=== PATIENT | male | born 1965 | race Caucasian/White ===

== ENCOUNTER → 2018-11-07 15:36 | Outpatient (CLI) | payer BC, MEDICARE, SELFPAY ==
--- NOTE | 2018-11-07 15:49 | XR_ITS ---
XR knee RT 4V HISTORY: Knee pain ITS.REASON: weight bearing view, right knee pain ORDERING PHYSICIAN: Vipul Chew MD PATIENT AGE: 52 years COMPARISON: None FINDINGS: No fracture or dislocation. No lytic or blastic change. Normal mineralization. No significant arthritic changes evident. No other significant findings IMPRESSION: Negative Knee
--- NOTE | 2018-11-07 15:49 | XR_ITS ---
XR knee LT 4V HISTORY: Left knee pain ITS.REASON: 4 views weightbearing, left knee pain ORDERING PHYSICIAN: Vipul Chew MD PATIENT AGE: 52 years COMPARISON: 01/25/2017 FINDINGS: Weightbearing views are performed. Minimal spurring is present along the lateral aspect of the patella. There is slight decrease in the medial and lateral joint space on weightbearing views. Small calcification is present along the medial femoral condyle and could represent sequela of remote avulsion fracture. IMPRESSION: 1. Minimal osteoarthritic change. 2. Calcification along the medial femoral condyle suggesting a prior MCL injury/Stieda lesion
== END ==
PROVIDERS: PCP Family Medicine; Visit Provider Orthopaedic Surgery
DX: M25.562 Pain in left knee (principal); M25.561 Pain in right knee
CPT/HCPCS: 73564

== ENCOUNTER → 2018-11-13 10:26 | Outpatient (CLI) | payer BC, MEDICARE, SELFPAY ==
--- NOTE | 2018-11-13 10:28 | MR_ITS ---
MR knee LT wo con HISTORY: Medial left knee pain with instability ITS.REASON: left knee pain ORDERING PHYSICIAN: iVpul Chew MD PATIENT AGE: 52 years Comparison: 11/07/2018 TECHNIQUE: Standard multiplanar multiecho sequences are performed without contrast. FINDINGS: The cruciate ligaments are unremarkable. The collateral ligaments, patellar tendon, and quadriceps tendon have an unremarkable appearance. The radiograph demonstrated a calcification along the medial femoral condyle consistent with an old MCL injury. The MCL however has an unremarkable appearance on the MRI images with no evidence of acute avulsion of the MCL. There does appear to be a horizontal tear of the posterior horn of the medial meniscus along its medial and posterior margin. The lateral meniscus has an unremarkable appearance. There slight decrease in the joint spaces look medial lateral compartment. The patellar cartilage is well preserved. There is a small knee joint effusion. IMPRESSION: 1. Nondisplaced horizontal tear involves the medial and posterior margin of the posterior horn of the medial meniscus 2. Small knee joint effusion. 3. Mild osteoarthritic changes
== END ==
PROVIDERS: PCP Family Medicine; Visit Provider Orthopaedic Surgery
DX: M17.12 Unilateral primary osteoarthritis, left knee (principal)
CPT/HCPCS: 73721

== ENCOUNTER → 2018-11-20 11:00 | Outpatient (CLI) | payer BC, MEDICARE, SELFPAY ==
--- NOTE | 2018-11-20 11:20 | XR_ITS ---
XR chest 2V HISTORY: ITS.REASON: HTN ORDERING PHYSICIAN: Vipul Chew MD PATIENT AGE: 52 years FINDINGS: The cardiomediastinal silhouette and pulmonary vascularity are within normal limits. The lungs are clear without infiltrates, suspicious nodules, or pleural effusions. No bony abnormalities. IMPRESSION: Negative chest, no acute finding
[2018-11-20 11:26] LABS: Basophils % 0.4 % (0.1-2.0); Eosinophils # 0.1 K/mm3 (0.0-0.4); Eosinophils % 0.8 % (0.1-12.0); Lymphocytes # 2.7 K/mm3 (0.7-4.5); Lymphocytes % 31.6 % (10-50); Mean Corpuscular HGB Conc 34.2 g/dL (31.8-35.4); Mean Corpuscular Hemoglobin 31.1 pg (27.0-31.2); Mean Platelet Volume 8.6 fl (7.4-10.4); Monocytes # 0.5 K/mm3 (0.1-1.0); Monocytes % 6.4 % (1.7-9.3); Neutrophils # 5.1 K/mm3 (1.8-7.8); Neutrophils % 60.8 % (37.0-80.0); Platelet Count 204 K/mm3 (142-424); Red Blood Count 5.83 M/mm3 (4.60-6.20); Red Cell Distribution Width 13.2 % (11.5-17.5); White Blood Count 8.4 K/mm3 (4.8-10.8)
[2018-11-20 11:27] LABS: Hemoglobin 18.2 g/dL (14.1-18.0)
[2018-11-20 12:07] LABS: Anion Gap 14.2 mEq/L (5-15); Blood Urea Nitrogen 9 mg/dL (7-18); Calcium 9.4 mg/dL (8.5-10.1); Carbon Dioxide 27 mmol/L (21.0-32.0); Chloride 105 mmol/L (98-107); Estimated Glomerular Filt Rate 89 ml/min (>60); GFR (African American) 107 ML/MIN (>60); Glucose 135 mg/dL (74-106); Potassium 4.2 mmoL/L (3.5-5.1); Sodium 142 mmol/L (136-145)
== END ==
PROVIDERS: Visit Provider Orthopaedic Surgery
DX: Z01.818 Encounter for other preprocedural examination (principal); S83.242D Other tear of medial meniscus, current injury, left knee, subsequent encounter
CPT/HCPCS: 36415; 71046; 80048; 85025; 93005

== ENCOUNTER → 2019-04-04 08:05 | Outpatient (CLI) | payer BC, MEDICARE, SELFPAY ==
[2019-04-04 10:42] LABS: Hemoglobin A1C 5.4 % (0.0-7.0)
[2019-04-04 10:46] LABS: T4 (Thyroxine) 7.2 ug/dl (4.7-13.3); Thyroid Stimulating Hormone 1.04 uIU/ml (0.358-3.740)
[2019-04-06 22:50] LABS: Vitamin D 25 Hydroxy 19.2 ng/mL (30.0-100.0)
[2019-04-06 22:51] LABS: Vitamin B12 353 pg/mL (232-1245)
[2019-04-07 16:41] LABS: Vitamin B6 9.4 ug/L (5.3-46.7)
== END ==
PROVIDERS: Visit Provider Anesthesiology Pain Medicine
DX: G62.9 Polyneuropathy, unspecified (principal); Z79.899 Other long term (current) drug therapy; M54.5 Low back pain; E55.9 Vitamin D deficiency, unspecified
CPT/HCPCS: 36415; 82607; 82652; 83036; 84207; 84436; 84443; 85025

== ENCOUNTER → 2019-04-28 13:43 | Outpatient (CLI) | payer BC, MEDICARE, SELFPAY ==
[2019-04-28 15:41] LABS: Amphetamine/Metha Screen,Urine Negative ng/mL (<1000); Barbiturates Screen,Urine Negative ng/mL (<200); Benzodiazepines Screen,Urine Negative ng/mL (<200); Cannabinoid Screen,Urine Negative ng/mL (<50); Cocaine Screen,Urine Negative ng/mL (<300); Methadone Screen,Urine Negative ng/mL (<300); Opiate Screen,Urine Positive ng/mL (<300); Phencyclidine Screen,Urine Negative ng/mL (<25)
== END ==
PROVIDERS: Visit Provider Nurse Practitioner Family
DX: Z79.899 Other long term (current) drug therapy (principal)
CPT/HCPCS: 80305

== ENCOUNTER 2019-05-06 09:00 | Outpatient (RCR) | payer BC, MEDICARE, SELFPAY | END 2019-05-06 09:05 | disposition home or self-care (01) | LOC: PT 09:00 | PROVIDERS: Visit Provider Anesthesiology Pain Medicine | DX: M54.5 Low back pain (principal) | CPT/HCPCS: 97010; 97012; 97014; 97033; 97035; 97110; 97140; 97163; G0283 ==

== ENCOUNTER → 2019-06-11 15:24 | Outpatient (CLI) | payer BC, MEDICARE, SELFPAY ==
--- NOTE | 2019-06-11 15:26 | MR_ITS ---
PROCEDURE: MR LUMBAR SPINE WO CON CLINICAL INDICATION: Low back pain, BLE radiculopathy Bilateral lower extremity radiculopathy. Back pain 6 lifting heavy object. Bilateral leg pain COMPARISON: [facility] OF THEOLOGY/O MRI-L-SPINE W/O from 07/21/2014 KNEELTWO MR knee LT wo con from 11/13/[address] lumbar spine wo con from 03/30/2019 TECHNIQUE: Standard multiplanar multiecho sequences are performed without contrast. 3-D MIP and myelographic images are also rendered and reviewed FINDINGS: There is normal alignment. The spinal cord ends at the L1-L2 level. There is some mild facet and ligamentum hypertrophy noted at L2-L3 L3-L4 and L4-L5 with unremarkable disc spaces. L5-S1: There is mild degenerative disc disease with mild bulging disc with type 2 endplate changes. No disc herniation or canal stenosis. IMPRESSION: 1. Degenerative disc disease at L5-S1 with mild bulging disc. 2. Mild multilevel facet and ligamentum hypertrophy. No canal stenosis disc herniation or foraminal stenosis apparent. No acute fracture Dictated by: Spencer Sanchez MD 06/13/2019 06:43 Electronically signed by Spencer Sanchez MD in [facility] 06/13/2019 06:43
== END ==
PROVIDERS: PCP Physician Assistant; Visit Provider Physician Assistant
DX: M54.16 Radiculopathy, lumbar region (principal); M54.5 Low back pain
CPT/HCPCS: 72148; 76376

== ENCOUNTER → 2019-06-27 14:26 | Outpatient (CLI) | payer BC, MEDICARE, SELFPAY ==
[2019-06-27 16:14] LABS: Amphetamine/Metha Screen,Urine Negative ng/mL (<1000); Barbiturates Screen,Urine Negative ng/mL (<200); Benzodiazepines Screen,Urine Negative ng/mL (<200); Cannabinoid Screen,Urine Negative ng/mL (<50); Cocaine Screen,Urine Negative ng/mL (<300); Methadone Screen,Urine Negative ng/mL (<300); Opiate Screen,Urine Positive ng/mL (<300); Phencyclidine Screen,Urine Negative ng/mL (<25)
== END ==
PROVIDERS: Visit Provider Nurse Practitioner Family
DX: M54.9 Dorsalgia, unspecified (principal); Z79.899 Other long term (current) drug therapy
CPT/HCPCS: 80305

== ENCOUNTER → 2019-07-07 12:35 | Outpatient (POV) | payer BC, MEDICARE, SELFPAY ==
[2019-07-07 12:54] VITALS: BP 189/89; PULSE 73; RESP 18; O2SAT 99; BMI 36.3
--- NOTE | 2019-07-07 13:17 | HMH.PMCON ---
Assessment and Plan (1) Bulging lumbar disc Current visit: No Status: Chronic Category: Medical Code(s): M51.26 - Other intervertebral disc displacement, lumbar region (2) DDD (degenerative disc disease), lumbar Current visit: No Status: Chronic Category: Medical Code(s): M51.36 - Other intervertebral disc degeneration, lumbar region - Assessment and plan all Dx Assessment and Plan for all problems:: We will schedule an L5-S1 epidural steroid injection for the patient. He is not on any anticoagulation therapy. Patient has failed conservative therapies. Patient is continuing a home stretching program. I will follow-up with the patient after his injection reassess his symptoms at that time. Patient's been instructed to call the office if he has any issues prior to his next appointment. Dr. Dao has reviewed this note and agrees with this plan of care. This note was dictated using voice recognition software and may contain errors or omissions HPI - Data of Consult Consult date: 07/07/19 Requesting Physician: Vianey Castro APRN Primary Care Provider: ODILIA Barrera - Consult Narrative Reason for consult: Back pain History of present illness: Mr. Dyer is a 53 year old male who presents today for consultation in regards to his low back and leg pain. Patient pain started several months ago when he was lifting a heavy object he suddenly had pain in his low back radiating down into his legs. His MRI is fairly benign up to the L5-S1 level where there is degenerative disc disease and a mild bulging disc. Patient has completed 6 weeks of physical therapy with no success. He is been put on narcotics by his primary care physician. Patient states he is unable to take gabapentin. Patient has tried conservative measures at this point I think injection therapy may benefit him. Patient does have a history of substance abuse. Long-term narcotics would not be beneficial for him. CC: Vianey Castro APRN [facility] History I have reviewed the patient's past medical history: Yes Medical History: Reports:: Anxiety, Hypertension Denies:: Cancer, Diabetes Mellitus Type 1, Diabetes Mellitus Type 2, Internal Pacemaker, MRSA, Seizures *Have you ever received a pneumonia vaccine?: Yes *Have you received a flu vaccine this season?: No Other Medical History: Denies: Blood Transfusion Reaction Laterality Cases: Left: Arthroscopy Knee Other Surgeries: No: Pacemaker Amputation: No Fractures: No - *Social History Smoking Status: Current every day smoker Tobacco Type: smokeless tobacco # Packs/Day (cigarettes): 1 Alcohol Intake: never Substance Use Type: denies use *Occupational Status:: other Housing: house Household Members: spouse *Travel in the last 8 weeks: None - Psychiatric History Pschychiatric History:: Reports:: Anxiety Family Hx:: Cancer, Coronary Artery Disease, Diabetes, Heart Attack, Stroke Review of Systems - Review of Systems ROS General: no recent weight change, no fever, no sleep disturbances Respiratory: no cough, no shortness of air, no recurring pulmonary infections Cardiovascular/Peripheral Vascular: No chest pain, No palpitations, no edema, no shortness of breath. Gastrointestinal: no incontinence, normal bowel movements reported Genitourinary: no incontinence Musculoskeletal: Back pain, leg pain Psychiatric: normal mood/ affect, Neurological: [denies weakness in extremities], [denies balance issues] Meds Home Medications Medication Instructions Recorded Confirmed Type diazepam 5 mg tablet 5 mg PO TID PRN #30 tab 04/08/19 06/27/19 History lisinopril 10 mg tablet 10 mg PO DAILY #90 tab 04/08/19 06/27/19 Rx sildenafil (antihypertensive) 20 40 mg PO DAILY PRN #20 tab 04/08/19 06/27/19 Rx mg tablet meloxicam 15 mg tablet 15 mg PO DAILY #30 tab 06/02/19 06/27/19 Rx hydrocodone 5 mg-acetaminophen 325 1 tab PO BID PRN #60 tab 06/27/19 06/27/19 Rx mg tablet
--- NOTE | 2019-07-07 13:22 | P.CONS_ITS ---
Assessment and Plan (1) Bulging lumbar disc Current visit: No Status: Chronic Category: Medical Code(s): M51.26 - Other intervertebral disc displacement, lumbar region (2) DDD (degenerative disc disease), lumbar Current visit: No Status: Chronic Category: Medical Code(s): M51.36 - Other intervertebral disc degeneration, lumbar region - Assessment and plan all Dx Assessment and Plan for all problems:: We will schedule an L5-S1 epidural steroid injection for the patient. He is not on any anticoagulation therapy. Patient has failed conservative therapies. Patient is continuing a home stretching program. I will follow-up with the patient after his injection reassess his symptoms at that time. Patient's been instructed to call the office if he has any issues prior to his next appointment. Dr. Dao has reviewed this note and agrees with this plan of care. This note was dictated using voice recognition software and may contain errors or omissions HPI - Data of Consult Consult date: 07/07/19 Requesting Physician: Vianey Castro APRN Primary Care Provider: ODILIA Barrera - Consult Narrative Reason for consult: Back pain History of present illness: Mr. Dyer is a 53 year old male who presents today for consultation in regards to his low back and leg pain. Patient pain started several months ago when he was lifting a heavy object he suddenly had pain in his low back radiating down into his legs. His MRI is fairly benign up to the L5-S1 level where there is degenerative disc disease and a mild bulging disc. Patient has completed 6 weeks of physical therapy with no success. He is been put on narcotics by his primary care physician. Patient states he is unable to take gabapentin. Patient has tried conservative measures at this point I think injection therapy may benefit him. Patient does have a history of substance abuse. Long-term narcotics would not be beneficial for him. CC: iVaney Castro APRN [facility] History I have reviewed the patient's past medical history: Yes Medical History: Reports:: Anxiety, Hypertension Denies:: Cancer, Diabetes Mellitus Type 1, Diabetes Mellitus Type 2, Internal Pacemaker, MRSA, Seizures *Have you ever received a pneumonia vaccine?: Yes *Have you received a flu vaccine this season?: No Other Medical History: Denies: Blood Transfusion Reaction Laterality Cases: Left: Arthroscopy Knee Other Surgeries: No: Pacemaker Amputation: No Fractures: No - *Social History Smoking Status: Current every day smoker Tobacco Type: smokeless tobacco # Packs/Day (cigarettes): 1 Alcohol Intake: never Substance Use Type: denies use *Occupational Status:: other Housing: house Household Members: spouse *Travel in the last 8 weeks: None - Psychiatric History Pschychiatric History:: Reports:: Anxiety Family Hx:: Cancer, Coronary Artery Disease, Diabetes, Heart Attack, Stroke Review of Systems - Review of Systems ROS General: no recent weight change, no fever, no sleep disturbances Respiratory: no cough, no shortness of air, no recurring pulmonary infections Cardiovascular/Peripheral Vascular: No chest pain, No palpitations, no edema, no shortness of breath. Gastrointestinal: no incontinence, normal bowel movements reported Genitourinary: no incontinence Musculoskeletal: Back pain, leg pain Psychiatric: normal mood/ affect, Neurological: [denies weakness in extremities], [denies balance issues] Meds Home Medications
== END ==
PROVIDERS: PCP Physician Assistant; Visit Provider Clinical Nurse Specialist Family Health
DX: M51.26 Other intervertebral disc displacement, lumbar region (principal); M51.36 Other intervertebral disc degeneration, lumbar region
CPT/HCPCS: 99202

== ENCOUNTER → 2019-09-01 10:40 | Outpatient (POV) | payer BC, MEDICARE, SELFPAY ==
[2019-09-01 12:39] VITALS: BP 150/91; PULSE 84; RESP 18; O2SAT 99; BMI 34.2
--- NOTE | 2019-09-01 12:58 | HMH.PAINSOAP ---
[facility] Pain Management SOAP Note Subjective:: Patient is a pleasant 53-year-old white male who we are treating for low back pain with lumbar radiculopathy. Patient rates his pain a 6 out of 10 however mostly in his right shoulder. Patient did well having no pain for 4 days after his epidural. His pain has begun to come back. He had over 80% relief of his pain symptoms he would like to repeat this. Patient was seen in the ER for his right shoulder he states that he has not followed up with his primary care after this. He states that he got a morphine injection in the ER which was beneficial for him. ROS General: no recent weight change, no fever, no sleep disturbances Respiratory: no cough, no shortness of air, no recurring pulmonary infections Cardiovascular/Peripheral Vascular: No chest pain, No palpitations, no edema, no shortness of breath. Gastrointestinal: no new onset incontinence, normal bowel movements reported Genitourinary: no new onset incontinence Musculoskeletal: Back pain, leg pain Psychiatric: normal mood/ affect Neurological: [denies new onset weakness in extremities], [denies new onset balance issues] Objective:: Physical Exam General: Alert and oriented x3, no acute distress, pleasant and cooperative, [on room air] Lungs: Resps E/U, Symmetrical chest expansion, Eyes: PERRL Musculoskeletal: Flexion and extension of lumbar spine somewhat guarded secondary to pain, deep tendon reflexes normal, strength in upper and lower extremities [5/5], [abnormal gait noted] Neurological: speech clear, lead sharepoint developer equal, no gross sensory deficits Assessment:: Degenerative disc disease lumbar spine with lumbar radiculopathy Plan:: Patient is not a narcotic candidate according to our clinic criteria. But we will set him up for a repeat L4-L5 epidural given the efficacy of his last one. I will follow-up with him after this reassess his symptoms at that time he is been instructed to call the office if he has any issues prior to his next appointment. He is not on any anticoagulation therapy. Dr. Dao has reviewed this note and agrees with this plan of care. This note was dictated using voice recognition software and may contain errors or omissions [facility] History I have reviewed the patient's past medical history: Yes Medical History: Reports:: Anxiety, Hypertension Denies:: Cancer, Diabetes Mellitus Type 1, Diabetes Mellitus Type 2, Internal Pacemaker, MRSA, Seizures *Have you ever received a pneumonia vaccine?: Yes *Have you received a flu vaccine this season?: Yes Other Medical History: Denies: Blood Transfusion Reaction Laterality Cases: Left: Arthroscopy Knee Other Surgeries: No: Pacemaker Amputation: No Fractures: No - *Social History Smoking Status: Current every day smoker Tobacco Type: smokeless tobacco # Packs/Day (cigarettes): 1 Alcohol Intake: never Substance Use Type: denies use *Occupational Status:: disabled Housing: house Household Members: spouse *Travel in the last 8 weeks: None - Psychiatric History Pschychiatric History:: Reports:: Anxiety Family Hx:: Cancer, Coronary Artery Disease, Diabetes, Heart Attack, Stroke
--- NOTE | 2019-09-01 13:03 | P.CONS_ITS ---
[facility] Pain Management SOAP Note Subjective:: Patient is a pleasant 53-year-old white male who we are treating for low back pain with lumbar radiculopathy. Patient rates his pain a 6 out of 10 however mostly in his right shoulder. Patient did well having no pain for 4 days after his epidural. His pain has begun to come back. He had over 80% relief of his pain symptoms he would like to repeat this. Patient was seen in the ER for his right shoulder he states that he has not followed up with his primary care after this. He states that he got a morphine injection in the ER which was beneficial for him. ROS General: no recent weight change, no fever, no sleep disturbances Respiratory: no cough, no shortness of air, no recurring pulmonary infections Cardiovascular/Peripheral Vascular: No chest pain, No palpitations, no edema, no shortness of breath. Gastrointestinal: no new onset incontinence, normal bowel movements reported Genitourinary: no new onset incontinence Musculoskeletal: Back pain, leg pain Psychiatric: normal mood/ affect Neurological: [denies new onset weakness in extremities], [denies new onset balance issues] Objective:: Physical Exam General: Alert and oriented x3, no acute distress, pleasant and cooperative, [on room air] Lungs: Resps E/U, Symmetrical chest expansion, Eyes: PERRL Musculoskeletal: Flexion and extension of lumbar spine somewhat guarded secondary to pain, deep tendon reflexes normal, strength in upper and lower extremities [5/5], [abnormal gait noted] Neurological: speech clear, staff midwife/apprenticeship director equal, no gross sensory deficits Assessment:: Degenerative disc disease lumbar spine with lumbar radiculopathy Plan:: Patient is not a narcotic candidate according to our clinic criteria. But we will set him up for a repeat L4-L5 epidural given the efficacy of his last one. I will follow-up with him after this reassess his symptoms at that time he is been instructed to call the office if he has any issues prior to his next appointment. He is not on any anticoagulation therapy. Dr. Dao has reviewed this note and agrees with this plan of care. This note was dictated using voice recognition software and may contain errors or omissions [facility] History I have reviewed the patient's past medical history: Yes Medical History: Reports:: Anxiety, Hypertension Denies:: Cancer, Diabetes Mellitus Type 1, Diabetes Mellitus Type 2, Internal Pacemaker, MRSA, Seizures *Have you ever received a pneumonia vaccine?: Yes *Have you received a flu vaccine this season?: Yes Other Medical History: Denies: Blood Transfusion Reaction Laterality Cases: Left: Arthroscopy Knee Other Surgeries: No: Pacemaker Amputation: No Fractures: No - *Social History Smoking Status: Current every day smoker Tobacco Type: smokeless tobacco # Packs/Day (cigarettes): 1 Alcohol Intake: never Substance Use Type: denies use *Occupational Status:: disabled Housing: house Household Members: spouse *Travel in the last 8 weeks: None - Psychiatric History Pschychiatric History:: Reports:: Anxiety Family Hx:: Cancer, Coronary Artery Disease, Diabetes, Heart Attack, Stroke
== END ==
PROVIDERS: PCP Physician Assistant; Visit Provider Clinical Nurse Specialist Family Health
DX: M51.16 Intervertebral disc disorders with radiculopathy, lumbar region (principal)
CPT/HCPCS: 99212

== ENCOUNTER → 2019-09-02 16:37 | Outpatient (CLI) | payer BC, MEDICARE, SELFPAY ==
[2019-09-02 17:45] LABS: Amphetamine/Metha Screen,Urine Negative ng/mL (<1000); Barbiturates Screen,Urine Negative ng/mL (<200); Benzodiazepines Screen,Urine Negative ng/mL (<200); Cannabinoid Screen,Urine Negative ng/mL (<50); Cocaine Screen,Urine Negative ng/mL (<300); Methadone Screen,Urine Negative ng/mL (<300); Opiate Screen,Urine Positive ng/mL (<300); Phencyclidine Screen,Urine Negative ng/mL (<25)
== END ==
PROVIDERS: Visit Provider Nurse Practitioner Family
DX: M25.511 Pain in right shoulder (principal)
CPT/HCPCS: 80305

== ENCOUNTER → 2021-01-04 12:53 | Outpatient (CLI) | payer BC, MEDICARE, SELFPAY ==
--- NOTE | 2021-01-04 13:06 | XR_ITS ---
PROCEDURE: XR CHEST 2V CLINICAL HISTORY: LUQ pain COMPARISON: CT CHW CT CHEST W/ CONTRAST from 05/30/2013 CR CXR2V XR chest 2V from 11/20/2018 FINDINGS: The cardiomediastinal silhouette and pulmonary vascularity are within normal limits. The lungs are clear without infiltrates, suspicious nodules, or pleural effusions. No acute bony abnormalities. IMPRESSION: No acute findings. Dictated by: Spencer Sanchez MD 01/04/2021 14:32 Spencer Sanchez MD in [facility] 01/04/2021 14:32
[2021-01-04 13:13] LABS: Basophils % 0.5 % (0.1-2.0); Eosinophils # 0.1 K/mm3 (0.0-0.4); Eosinophils % 0.7 % (0.1-12.0); Hematocrit 50.3 % (42.0-52.0); Hemoglobin 16.7 g/dL (14.1-18.0); Lymphocytes # 3.2 K/mm3 (0.7-4.5); Lymphocytes % 34.5 % (10-50); Mean Corpuscular HGB Conc 33.2 g/dL (31.8-35.4); Mean Corpuscular Hemoglobin 30.1 pg (27.0-31.2); Mean Corpuscular Volume 90.8 fl (80-94); Mean Platelet Volume 8.6 fl (7.4-10.4); Monocytes # 0.8 K/mm3 (0.1-1.0); Monocytes % 8.5 % (1.7-9.3); Neutrophils # 5.2 K/mm3 (1.8-7.8); Neutrophils % 55.8 % (37.0-80.0); Platelet Count 205 K/mm3 (142-424); Red Blood Count 5.54 M/mm3 (4.60-6.20); Red Cell Distribution Width 13.6 % (11.5-17.5); White Blood Count 9.3 K/mm3 (4.8-10.8)
[2021-01-04 14:40] LABS: Chloride 106 mmol/L (98-107)
[2021-01-04 14:41] LABS: Potassium 4.4 mmoL/L (3.5-5.1); Sodium 140 mmol/L (136-145)
[2021-01-04 14:43] LABS: Alanine Aminotransferase 48 U/L (12-78); Alkaline Phosphatase 129 U/L (38-126); Anion Gap 15.4 mEq/L (5-15); Aspartate Amino Transferase 48 U/L (17-59); Bilirubin,Total 0.6 mg/dl (0.2-1.3); Blood Urea Nitrogen 16 mg/dl (9-20); Carbon Dioxide 23 mmol/L (22.0-30.0); Estimated Glomerular Filt Rate 100 ml/min (>60); GFR (African American) 121 ML/MIN (>60)
[2021-01-04 14:44] LABS: Calcium 9.5 mg/dl (8.4-10.2); Glucose 83 mg/dl (74-100); HDL Cholesterol 34 mg/dl (40-60)
[2021-01-04 14:45] LABS: Albumin Level 4.4 g/dl (3.5-5.0); Albumin/Globulin Ratio 1.6 (1.1-1.8); Chol/HDL Ratio 6.1 (1-3.5); Cholesterol 208 mg/dl (140-200); Globulin 2.7 g/dL (1.3-3.2); Total Protein,Serum 7.1 g/dl (6.3-8.2); Triglycerides 298 mg/dl (30-150); VLDL Cholesterol 60 mg/dL (0-40)
[2021-01-04 14:55] LABS: Direct LDL Cholesterol 127.57 mg/dL (100-129)
[2021-01-07 06:17] LABS: PSA, Free 0.34 ng/mL
== END ==
PROVIDERS: Visit Provider Physician Assistant
DX: R10.12 Left upper quadrant pain (principal); R11.2 Nausea with vomiting, unspecified; I10 Essential (primary) hypertension; Z79.899 Other long term (current) drug therapy; Z12.5 Encounter for screening for malignant neoplasm of prostate
CPT/HCPCS: 36415; 71046; 80053; 80061; 84153; 84154; 84436; 84443; 85025

== ENCOUNTER → 2021-01-28 08:45 | Outpatient (CLI) | payer BC, MEDICARE, SELFPAY ==
--- NOTE | 2021-01-28 08:45 | US_ITS ---
PROCEDURE: US ABDOMEN COMPLETE CLINICAL INDICATION: luq pain COMPARISON: US RUQ US RUQ-(ABD LTD)1ORGAN/QUAD/FU from 04/03/2014 FINDINGS: PANCREAS: Unremarkable. No obvious mass or abnormal fluid collection. No ductal dilatation LIVER: Diffuse increased echogenicity of the liver with poor through transmission of sound consistent with hepatic steatosis. No focal liver lesion demonstrated. There is appropriate direction of blood flow within non dilated portal vein. RIGHT KIDNEY: Unremarkable. Normal size and echogenicity. No hydronephrosis LEFT KIDNEY: Unremarkable. Normal size and echogenicity. No hydronephrosis GALLBLADDER: No gallstones, gallbladder wall thickening, pericholecystic fluid, or biliary dilatation. AORTA: No evidence of aneurysmal dilatation. SPLEEN: Mild splenomegaly at 14 cm ASCITES: None demonstrated. IMPRESSION: Fatty liver otherwise negative Dictated by: Spencer Sanchez MD 01/28/2021 17:30 Spencer Sanchez MD in [facility] 01/28/2021 17:30
== END ==
PROVIDERS: PCP Emergency Medicine; Visit Provider Physician Assistant
DX: R10.12 Left upper quadrant pain (principal)
CPT/HCPCS: 76700

== ENCOUNTER → 2021-02-18 07:58 | Outpatient (CLI) | payer BC, MEDICARE, SELFPAY ==
--- NOTE | 2021-02-18 07:58 | CT_ITS ---
PROCEDURE: CT ABDOMEN WO CON CLINICAL INDICATION: LUQ pain COMPARISON: CT ABDPELW CT ABD PELVIS W/ CONTRAST from 04/15/2014 TECHNIQUE: Axial images obtained with sagittal and coronal reformats. All CT scans at the facility use one or more dose reduction, viz: automated exposure control, ma/kV adjustment per patient size (including targeted exams where dose is matched to indication, i.e. head), or iterative reconstruction technique. FINDINGS: Lower thorax: The lower lung cole are clear, there is no pleural fluid. ABDOMEN: Liver: No masses or biliary dilatation. Gallbladder: Nondistended. No radio opaque stones. Pancreas: No masses or peripancreatic fluid collections. Spleen: unremarkable Adrenals: unremarkable Kidneys/ureters: unremarkable ABDOMEN : Stomach bowel: The stomach is distended with ingested food particles and fluid but otherwise appears normal. Stomach is high in transverse in position, a normal variation. There is diffuse diverticulosis of the visualized portion of the transverse colon and descending colon. Peritoneum: No abnormal fluid collections. No obvious inflammatory changes. No free air. Lymph nodes: No enlarged lymph nodes apparent in the visualized portion of the abdomen. Vasculature: No evidence of abdominal aortic aneurysm. No retroperitoneal hemorrhage evident. Bones: No acute fracture IMPRESSION: No acute finding, specifically I see no abnormality in the left upper quadrant, basically stable diffuse diverticulosis of the transverse and descending colon which was seen previously. Dictated by: Dr. Rajiv Clifton MD 02/18/2021 08:40 Dr. Rajiv Clifton MD in [facility] 02/18/2021 08:40
== END ==
PROVIDERS: PCP Emergency Medicine; Visit Provider Physician Assistant
DX: R10.12 Left upper quadrant pain (principal); R16.1 Splenomegaly, not elsewhere classified; K76.0 Fatty (change of) liver, not elsewhere classified
CPT/HCPCS: 74150

== ENCOUNTER → 2021-05-06 11:46 | Outpatient (CLI) | payer BC, MEDICARE, SELFPAY ==
[2021-05-06 13:37] LABS: Free T4 (Free Thyroxine) 1.23 ng/dl (0.78-2.19)
[2021-05-06 13:41] LABS: Hemoglobin A1C 5.3 % (4.0-6.0)
[2021-05-06 13:43] LABS: C-Reactive Protein 6.3 mg/L (0-4)
[2021-05-06 14:10] LABS: Thyroid Stimulating Hormone 1.71 uIU/mL (0.465-4.68)
[2021-05-06 14:44] LABS: Vitamin B12 395 pg/mL (239-931)
[2021-05-06 14:47] LABS: Folate 8.26 ng/mL
[2021-05-07 12:55] LABS: RA Latex Turbid. <10.0 IU/mL (0.0-13.9)
[2021-05-08 16:32] LABS: Antinuclear Antibodies, IFA Negative (.)
[2021-05-09 14:39] LABS: Albumin 3.8 g/dL (2.9-4.4); Alpha-1-Globulin 0.3 g/dL (0.0-0.4); Alpha-2-Globulin 0.6 g/dL (0.4-1.0); Gamma Globulin 1.2 g/dL (0.4-1.8)
[2021-05-12 15:57] LABS: Methylmalonic Acid 223 nmol/L (0-378)
== END ==
PROVIDERS: Visit Provider Physical Medicine & Rehabilitation
DX: G60.9 Hereditary and idiopathic neuropathy, unspecified (principal)
CPT/HCPCS: 36415; 82131; 82607; 82746; 83036; 84155; 84165; 84439; 84443; 86038; 86140; 86431

== ENCOUNTER → 2021-09-02 14:37 | Outpatient (CLI) | payer BC, MEDICARE, SELFPAY ==
[2021-09-05 16:11] LABS: Albumin 3.7 g/dL (2.9-4.4); Alpha-1-Globulin 0.2 g/dL (0.0-0.4); Alpha-2-Globulin 0.4 g/dL (0.4-1.0); Gamma Globulin 1.3 g/dL (0.4-1.8); Protein, Total 6.4 g/dL (6.0-8.5)
== END ==
PROVIDERS: Visit Provider Physical Medicine & Rehabilitation
DX: G80.9 Cerebral palsy, unspecified (principal)
CPT/HCPCS: 36415; 84155; 84165

== ENCOUNTER → 2022-01-25 06:31 | Outpatient (CLI) | payer BC, MEDICARE, SELFPAY | PROVIDERS: PCP Physician Assistant; Visit Provider Internal Medicine | DX: R06.00 Dyspnea, unspecified (principal); R07.9 Chest pain, unspecified; I10 Essential (primary) hypertension; R94.31 Abnormal electrocardiogram [ECG] [EKG] | CPT/HCPCS: 93306 ==

== ENCOUNTER → 2022-06-06 16:21 | Outpatient (CLI) | payer BC, MEDICARE, SELFPAY | PROVIDERS: PCP Nurse Practitioner Family; Visit Provider Nurse Practitioner Family | DX: N39.0 Urinary tract infection, site not specified (principal) | CPT/HCPCS: 87086 ==

== ENCOUNTER 2022-08-12 14:36 | Emergency (ER) | payer OTHER, SELFPAY ==
--- NOTE | 2022-08-12 14:44 | EXP.UTC ---
Discharge Plan Disposition Patient Disposition: Home, Self-Care Condition: Good Prescriptions Prescriptions: New amoxicillin-pot clavulanate 875-125 mg Tablet 1 tab PO Q12H Qty: 20 0RF No Action oxycodone 10 mg tablet 15 mg PO QID PRN Label Comments: TAKE ONE TABLET BY MOUTH FOUR TIMES DAILY NEEDED MAY CAUSE DROWSINESS gabapentin 100 mg capsule 100 mg PO QID prednisone 20 mg tablet 20 mg PO BID 5 Days Qty: 10 0RF cyclobenzaprine 10 mg tablet 10 mg PO TID PRN (Reason: muscle spasm) Qty: 60 0RF diclofenac sodium [Arthritis Pain (diclofenac)] 1 % gel 2 g TOPICAL QID Qty: 100 2RF Rx Instructions: apply to single elbow, wrist or hand; for hand includes palm/fingers/back of hand Referrals Follow up/Referrals: Praveen Lemus MD [Primary Care Provider] - See instructions Activity Restrictions/Add. Instructions Additional Instructions/Restrictions: Keep the wounds clean and dry. Follow up with your regular doctor. Take the antibiotics as directed and apply the topical antibiotics as directed. Make sure you stay in contact with the health department regarding the health of the dog. Return in 10 days to have the sutures removed. Watch the puncture wounds for signs of worsening infection, such as worsening redness, drainage, swelling, etc. 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 He states that today he was investigating a dog bite in the community when the dog in question attacked him and bit him on the left hand. His tetanus immunization is not up to date. Related Data Home Medications Medication Instructions Recorded Confirmed oxycodone 10 mg tablet 15 mg PO QID PRN 01/04/21 06/06/22 gabapentin 100 mg capsule 100 mg PO QID 01/02/22 06/06/22 Previous Rx's Medication Instructions Recorded diclofenac sodium 1 % topical gel 2 g topical QID #100 grams 01/23/22 (Arthritis Pain (diclofenac)) cyclobenzaprine 10 mg tablet 10 mg PO TID PRN muscle spasm #60 06/06/22 tabs prednisone 20 mg tablet 20 mg PO BID 5 days #10 tabs 06/06/22 amoxicillin 875 mg-potassium 1 tab PO Q12H #20 tabs 08/12/22 clavulanate 125 mg tablet Allergies Allergy/AdvReac Type Severity Reaction Status Date / Time garlic [GARLIC] Allergy Severe THROAT Verified 08/12/22 15:11 SWELLING famotidine [From PEPCID] Allergy Mild HYPER Verified 08/12/22 15:11 metoclopramide [From REGLAN] Allergy Mild HYPER Verified 08/12/22 15:11 PFSH PFSH Medical History BMI 39.0-39.9,adult Erectile dysfunction Hypertension Lumbar radiculopathy Social History Smoking Status: Never smoker alcohol intake: never substance use type: denies use current occupational status: disabled Travel in the last 8 weeks: Inside the [place] household members: spouse housing: house current occupational exposures/hazards: No caffeine: No ROS Obtained: Yes All systems reviewed & no additional complaints except as documented Constitutional Constitutional: Denies chills and Denies fever(s) Eyes Eyes: Denies eye discharge ENT Ears, Nose, Mouth, and Throat: Denies dizziness, Denies otalgia and Denies sore throat Cardiovascular Cardiovascular: Denies chest pain Respiratory Respiratory: Denies shortness of breath, Denies chest congestion, Denies cough, Denies stridor and Denies wheezing Gastrointestinal Gastrointestingal: Denies nausea or vomiting Musculoskeletal Musculoskeletal: Reports system reviewed and no additional complaint
[2022-08-12 15:09] VITALS: BP 182/112; PULSE 100; RESP 18; TEMP 37.2; O2SAT 95; BMI 34.0
[2022-08-12 16:30] VITALS: BP 182/112; PULSE 100; RESP 18; TEMP 37.2
== END 2022-08-12 16:32 | disposition home or self-care (01) ==
PROVIDERS: Emergency Provider Nurse Practitioner Family; PCP Emergency Medicine
DX: S61.432A Puncture wound without foreign body of left hand, initial encounter (principal); W54.0XXA Bitten by dog, initial encounter; Z23 Encounter for immunization
CPT/HCPCS: 12001; 90471; 90714; 99213; G0463

== ENCOUNTER → 2022-10-18 13:31 | Outpatient (CLI) | payer BC, MEDICARE, SELFPAY ==
--- NOTE | 2022-10-18 13:32 | US_ITS ---
PROCEDURE INFORMATION: Exam: US Left Breast, Complete MG Bilateral Diagnostic Breast Tomosynthesis Exam date and time: 10/18/2022 2:22 PM Age: 56 years old Clinical indication: Left breast pain; Left breast swelling; Patient HX: Pain behind nipple x 3 wks TECHNIQUE: Imaging protocol: Complete ultrasound of all four quadrants of the Left breast and the retroareolar regions, including ultrasound of the axilla when performed. Bilateral Diagnostic tomosynthesis and 2D mammography including computer-aided detection (CAD) when performed. Unilateral or bilateral exam. COMPARISON: MG MM DIG MAMM BI DX W/CAD 10/18/2022 1:33 PM FINDINGS: MAMMOGRAPHY: Breast composition: There are scattered areas of fibroglandular density on the left consistent with mild unilateral left gynecomastia. No breast tissue is noted on the right.. There is no stellate mass, architectural distortion or suspicious microcalcifications in either breast to suggest malignancy. No skin thickening or axillary adenopathy. ULTRASOUND: Sonographic images of the left breast including the retroareolar region, all 4 quadrants and the axilla do not demonstrate any solid or cystic masses. Mild retroareolar gynecomastia is noted. No architectural distortion or acoustical shadowing. No skin thickening or axillary adenopathy. Comparison retroareolar sonographic image of the right breast demonstrates adipose tissue only IMPRESSION: Palpable abnormality in the left breast corresponds to mild unilateral benign gynecomastia. Correlation with current medication use is recommended to assess the potential etiology for the gynecomastia ASSESSMENT: BI-RADS Category 2: Benign
== END ==
PROVIDERS: PCP Physician Assistant; Visit Provider Physician Assistant
DX: N63.20 Unspecified lump in the left breast, unspecified quadrant (principal); N64.4 Mastodynia
CPT/HCPCS: 76641; 77062; 77066; G0279

== ENCOUNTER → 2022-10-25 09:52 | Outpatient (CLI) | payer BC, MEDICAID, SELFPAY ==
[2022-10-25 10:16] LABS: Basophils # 0.1 K/mm3 (0-0.2); Basophils % 0.6 % (0.1-2.0); Eosinophils # 0.1 K/mm3 (0.0-0.4); Eosinophils % 1.1 % (0.1-12.0); Hematocrit 50.4 % (42.0-52.0); Hemoglobin 16.7 g/dL (14.1-18.0); Lymphocytes # 3.7 K/mm3 (0.7-4.5); Mean Corpuscular HGB Conc 33.2 g/dL (31.8-35.4); Mean Corpuscular Hemoglobin 30.9 pg (27.0-31.2); Mean Corpuscular Volume 93.2 fl (80-94); Mean Platelet Volume 9.4 fl (7.4-10.4); Monocytes # 0.6 K/mm3 (0.1-1.0); Monocytes % 6.7 % (1.7-9.3); Neutrophils # 4.2 K/mm3 (1.8-7.8); Neutrophils % 48.6 % (37.0-80.0); Platelet Count 215 K/mm3 (142-424); Red Cell Distribution Width 13.5 % (11.5-17.5); White Blood Count 8.7 K/mm3 (4.8-10.8)
[2022-10-25 11:09] LABS: Alanine Aminotransferase 44 U/L (12-78); Albumin/Globulin Ratio 1.4 (1.1-1.8); Alkaline Phosphatase 132 U/L (38-126); Anion Gap 8.5 mEq/L (5-15); Aspartate Amino Transferase 49 U/L (17-59); Bilirubin,Total 0.6 mg/dl (0.2-1.3); Blood Urea Nitrogen 12 mg/dl (9-20); Calcium 9.3 mg/dl (8.4-10.2); Carbon Dioxide 32 mmol/L (22.0-30.0); Chloride 107 mmol/L (98-107); Chol/HDL Ratio 5.1 (1-3.5); Cholesterol 182 mg/dl (140-200); Estimated Glomerular Filt Rate 117 ml/min (>60); GFR (African American) 141 ML/MIN (>60); Globulin 2.9 g/dL (1.3-3.2); Glucose 123 mg/dl (74-100); HDL Cholesterol 36 mg/dl (40-60); Potassium 5.5 mmoL/L (3.5-5.1); Sodium 142 mmol/L (136-145); Total Protein,Serum 6.9 g/dl (6.3-8.2); Triglycerides 160 mg/dl (30-150); VLDL Cholesterol 32 mg/dL (0-40)
[2022-10-25 11:20] LABS: Direct LDL Cholesterol 117.48 mg/dL (100-129)
[2022-10-25 11:25] LABS: 25-OH Vitamin D, Total 15.2 ng/mL (30-100)
[2022-10-25 11:40] LABS: Prostate Specific Ag Screen 1.1 ng/ml (0.0-4.0); Thyroid Stimulating Hormone 2.61 uIU/mL (0.465-4.68)
[2022-10-25 13:40] LABS: Hemoglobin A1C 5.9 % (4.0-6.0)
[2022-10-26 12:02] LABS: FSH 5.4 mIU/mL (1.5-12.4); LH 6.1 mIU/mL (1.7-8.6); Progesterone 0.6 ng/mL (0.0-0.5); Prolactin 31.8 ng/mL (4.0-15.2); Testosterone,Total 349 ng/dL (264-916)
[2022-10-28 17:18] LABS: Estrogen 63 pg/mL (56-213)
== END ==
PROVIDERS: PCP Physician Assistant; Visit Provider Physician Assistant
DX: N62 Hypertrophy of breast (principal); E55.9 Vitamin D deficiency, unspecified; Z12.5 Encounter for screening for malignant neoplasm of prostate
CPT/HCPCS: 36415; 80053; 80061; 82306; 82672; 83001; 83002; 83036; 84144; 84146; 84403; 84443; 85025; G0103

== ENCOUNTER 2023-03-19 19:30 | Inpatient (IN) | payer BC, MEDICARE, SELFPAY ==
[2023-03-19 19:32] VITALS: BP 158/88; PULSE 115; RESP 26; TEMP 37.1; O2SAT 98; BMI 39.5
[2023-03-19 19:45] VITALS: BMI 39.5
--- NOTE | 2023-03-19 19:48 | CT_ITS ---
PROCEDURE INFORMATION: Exam: CT Abdomen And Pelvis With Contrast Exam date and time: 03/19/2023 8:56 PM Age: 57 years old Clinical indication: Abdominal pain; Localized; Upper; Additional info: Upper abd pain, vomiting blood TECHNIQUE: Imaging protocol: Computed tomography of the abdomen and pelvis with contrast. Radiation optimization: All CT scans at this facility use at least one of these dose optimization techniques: automated exposure control; mA and/or kV adjustment per patient size (includes targeted exams where dose is matched to clinical indication); or iterative reconstruction. Contrast material: ISOVUE; Contrast volume: 75 ml; Contrast route: IV; REPORTING DATA: Count of CT and Cardiac NM exams in prior 12 months: This patient has received 0 known CTs and 0 known cardiac nuclear medicine studies in the 12 months prior to the current study. COMPARISON: CT ABDOMEN WO CON 18/02/2021 07:59 FINDINGS: Liver: Normal. No mass. Gallbladder and bile ducts: Pericholecystic edema. Pancreas: Peripancreatic edema and free fluid in the retroperitoneum. Spleen: Normal. No splenomegaly. Adrenal glands: Normal. No mass. Kidneys and ureters: Normal. No hydronephrosis. Stomach and bowel: Moderate colonic diverticulosis without diverticulitis. Appendix: Unremarkable appendix. Intraperitoneal space: Unremarkable. No free air. No significant fluid collection. Vasculature: Unremarkable. No abdominal aortic aneurysm. Lymph nodes: Unremarkable. No enlarged lymph nodes. Urinary bladder: Unremarkable as visualized. Reproductive: Unremarkable as visualized. Bones/joints: Unremarkable. No acute fracture. Soft tissues: Tiny fat containing umbilical hernia. IMPRESSION: 1. Peripancreatic edema and free fluid in the retroperitoneum. This is most likely due to acute pancreatitis. Patent portal and splenic veins. No peripancreatic fluid collection. 2. Pericholecystic edema. Please exclude acute cholecystitis.
[2023-03-19 20:02] LABS: Chloride 104 mmol/L (98-107); Potassium 4.4 mmoL/L (3.5-5.1); Sodium 143 mmol/L (136-145)
[2023-03-19 20:05] LABS: Alanine Aminotransferase 78 U/L (12-78); Albumin Level 4.2 g/dl (3.5-5.0); Alkaline Phosphatase 167 U/L (38-126); Amylase 1108 U/L (30-110); Anion Gap 14.4 mEq/L (5-15); Aspartate Amino Transferase 120 U/L (17-59); Bilirubin,Direct 0.1 mg/dl (0.0-0.4); Bilirubin,Indirect 0.6 mg/dL (0.0-0.9); Bilirubin,Total 0.7 mg/dl (0.2-1.3); Bilirubin,Unconjugated 0.6 mg/dL (0.0-1.1); Blood Urea Nitrogen 9 mg/dl (9-20); Calcium 9.2 mg/dl (8.4-10.2); Carbon Dioxide 29 mmol/L (22.0-30.0); Creatinine Clearance Estimated 261 mL/min (50-200); Estimated Glomerular Filt Rate 139 ml/min (>60); GFR (African American) 168 ML/MIN (>60); Glucose 141 mg/dl (74-100); Total Protein,Serum 7.4 g/dl (6.3-8.2)
[2023-03-19 20:06] LABS: Lactic Acid 1.6 mmol/L (0.7-2.1)
[2023-03-19 20:11] LABS: C-Reactive Protein 11.4 mg/L (0-4)
--- NOTE | 2023-03-19 20:12 | HMH.EDABDPAI ---
Discharge Plan Disposition Patient Disposition: Admitted Chief Complaint: Abdominal Pain Clinical Impressions Clinical Impression: Acute pancreatitis, Acute cholecystitis Discharge ED Provider: Mariah (ED)Praveen Abdominal Pain HPI General Chief Complaint: Abdominal Pain Stated Complaint: upper abdomin pain Time Seen by Provider: 03/19/23 20:00 Mode of Arrival: Family Vehicle Source of Information: Patient, Spouse and Medical Record Limitations: No Limitations Description of Symptoms (Recalled from ER Triage Doc. by RN): Pt c/o sever upper ABD pain that began at 12 pm today. He also reports bright red bloody vomit. Denies any chronic alcohol use. He denies any trauma or falls recently. Denies any chest pain. Pt is thrashing around in the bed during triage d/t the pain. He report the pain from 12pm did subside quickly and he did not seek treatment at that time. It increased in it's intensity greatly and he presented to the ER for treatment. Denies any prior ABD surgeries. History of Present Illness HPI narrative: acute abd pain which started today with vomiting - pt with no fever MD complaint: abdominal pain Onset (ago): hour(s) Consistency: constant Location: LUQ and epigastric Severity: severe Severity scale (1-10): >10 Quality: sharp Associated symptoms: denies other symptoms Related Data Home Medications Medication Instructions Recorded Confirmed gabapentin 400 mg capsule 400 mg PO 10/03/22 10/03/22 oxycodone 15 mg tablet 15 mg PO 10/03/22 10/03/22 Previous Rx's Medication Instructions Recorded diclofenac sodium 1 % topical gel 2 g topical QID #100 grams 01/23/22 (Arthritis Pain (diclofenac)) cyclobenzaprine 10 mg tablet 10 mg PO TID PRN muscle spasm #60 06/06/22 tabs Allergies Allergy/AdvReac Type Severity Reaction Status Date / Time garlic [GARLIC] Allergy Severe THROAT Verified 10/03/22 09:31 SWELLING famotidine [From PEPCID] Allergy Mild HYPER Verified 10/03/22 09:31 metoclopramide [From REGLAN] Allergy Mild HYPER Verified 10/03/22 09:31 [facility] Disclaimer: The information contained in this section may have been updated after the patient was seen, as this information can be updated by other users. Medical History BMI 39.0-39.9,adult Erectile dysfunction Hypertension Lumbar radiculopathy Social History Smoking Status: Never smoker alcohol intake: never substance use type: denies use current occupational status: disabled Travel in the last 8 weeks: [place] the [place] household members: spouse housing: house current occupational exposures/hazards: No caffeine: No ROS Obtained: Yes All systems reviewed & no additional complaints except as documented Physical Exam General General appearance: alert Head Head exam: normocephalic Eye Eye exam: Present PERRL and EOMI; Absent scleral icterus ENT ENT exam: Present mucous membranes moist Neck Neck exam: Present trachea midline Respiratory Respiratory exam: Absent respiratory distress Cardiovascular Cardiovascular exam: Present regular rate Abdominal Exam Abdominal exam: Present soft and tenderness; Absent guarding or rebound Abdominal tenderness: Present LUQ, epigastrium and severe Extremities Exam Extremities exam: Present full ROM Neurological Exam Neurological exam: Present alert, oriented X3 and CN II-XII intact; Absent motor sensory deficit Skin Skin exam: Absent rash Medical Decision Making Medical Records Medical records reviewed: Yes I reviewed the patient's medical records. [place] Inquiry Pt receiving controlled substance: No Vital Signs: 03/19/23 19:32 Temperature 98.7 F Temperature Source Oral Pulse Rate [Right] 115 H Respiratory Rate 26 H Blood Pressure [Right Arm] 158/88 H Blood Pressure Mean [Right Arm] 111 Blood Pressure Source [Right Arm] Automatic Cuff 02 Sat by Pu
[2023-03-19 20:31] LABS: Erythrocyte Sedimentation Rate 9 mm/hr (0-20)
--- NOTE | 2023-03-19 20:34 | XR_ITS ---
PROCEDURE INFORMATION: Exam: XR Chest Exam date and time: 03/19/2023 8:45 PM Age: 57 years old Clinical indication: Pain; Other: Upper abd TECHNIQUE: Imaging protocol: Radiologic exam of the chest. Views: 2 views. COMPARISON: CR XR CHEST 2V 04/01/2021 13:13 FINDINGS: Lungs: Low lung volumes with associated vascular crowding and bibasilar atelectasis. Pleural spaces: Unremarkable. No pleural effusion. No pneumothorax. Heart/Mediastinum: Borderline cardiomegaly. Bones/joints: Unremarkable. IMPRESSION: No acute findings.
[2023-03-19 20:51] LABS: Procalcitonin 0.054 ng/mL (0.0-2.0)
[2023-03-19 21:19] LABS: Lipase 21737 U/L (23-300)
[2023-03-19 21:40] LABS: Basophils # 0.1 K/mm3 (0-0.2); Basophils % 0.3 % (0.1-2.0); Eosinophils % 0.2 % (0.1-12.0); Hematocrit 53.8 % (42.0-52.0); Hemoglobin 17.7 g/dL (14.1-18.0); Lymphocytes # 2.6 K/mm3 (0.7-4.5); Lymphocytes % 17.3 % (10-50); Mean Corpuscular HGB Conc 32.9 g/dL (31.8-35.4); Mean Corpuscular Hemoglobin 30.6 pg (27.0-31.2); Mean Corpuscular Volume 92.8 fl (80-94); Mean Platelet Volume 9.6 fl (7.4-10.4); Monocytes % 6.9 % (1.7-9.3); Neutrophils # 11.1 K/mm3 (1.8-7.8); Neutrophils % 75.3 % (37.0-80.0); Platelet Count 227 K/mm3 (142-424); Red Cell Distribution Width 13.4 % (11.5-17.5); White Blood Count 14.8 K/mm3 (4.8-10.8)
--- NOTE | 2023-03-19 21:53 | PC.NURSE ---
Paging on-call General Surgery- Dr. Pickering
--- NOTE | 2023-03-19 21:55 | PC.NURSE ---
Dr Lemus s/w Dr. Pickering
--- NOTE | 2023-03-19 21:59 | PC.NURSE ---
Notified house of admission
--- NOTE | 2023-03-19 22:02 | PC.NURSE ---
Dr. Lemus at bedside. Pt agrees to be admitted. Dr. Lemus s/w hospitalist Demian Martinez for admit.
[2023-03-19 22:04] LABS: Coronavirus 19, PCR Not Detected (NotDetected); Influenza A, PCR Not Detected (NotDetected); Influenza B, PCR Not Detected (NotDetected)
--- NOTE | 2023-03-19 22:07 | PC.NURSE ---
Hospitalist at bedside
--- NOTE | 2023-03-19 22:19 | PC.NURSE ---
Registration notified of admission. Pt assigned to room 204 for acute pancreatitis. Acute to the hospitalist.
[2023-03-19 23:17] VITALS: BP 150/85; PULSE 113; RESP 19; TEMP 37; O2SAT 94
--- NOTE | 2023-03-19 23:21 | PC.NURSE ---
pt arrived to floor at this time
[2023-03-19 23:52] VITALS: BP 150/85; PULSE 114; RESP 22; TEMP 37.8; O2SAT 93; BMI 39.7
--- NOTE | 2023-03-20 00:55 | EXP.HP ---
History of Present Illness *Admission Date: 03/19/23 *Reason for visit:: pancreatitis *History of present illness: 57 year old male presented to ED for c/o abd pain with vomiting. Pt is a poor historian upon admission. Unable to answer most questions. States he has hx of pancreatic cancer. Denies diabetes. States pain started at 11 in the morning with vomiting. unrelated to eating. Does not know when last meal was. [place] [address], WBC 14.8, and CT scan result of acute pancreatitis and pericholecystic edema. Dr. Mckeon spoke with Dr. Pickering in the ED for surgical consultation. Dr. Mckeon called hospitalist team and the patient was admitted for further medical management and ultrasound of gallbladder for the A.M. IV antibiotics were ordered as well as IV pain medication. [facility] Disclaimer: The information contained in this section may have been updated after the patient was seen, as this information can be updated by other users. Medical History BMI 39.0-39.9,adult Erectile dysfunction Hypertension Lumbar radiculopathy Social History Smoking Status: Never smoker alcohol intake: never substance use type: denies use current occupational status: disabled Travel in the last 8 weeks: [place] the [place] household members: spouse housing: house current occupational exposures/hazards: No caffeine: No Review of Systems Review of Systems Review of systems:: pertinent systems reviewed and negative unless documented below Constitutional Constitutional: Reports system reviewed and no additional complaints, except as documented Eyes Eyes: Reports system reviewed and no additional complaints, except as documented ENT Ears, Nose, Mouth, and Throat: Reports system reviewed and no additional complaints, except as documented *Cardiovascular Cardiovascular: Reports system reviewed and no additional complaints, except as documented *Respiratory Respiratory: Reports system reviewed and no additional complaints, except as documented *Gastrointestinal Gastrointestinal: Reports abdominal pain, Reports nausea and Reports vomiting *Genitourinary Genitourinary: Reports system reviewed and no additional complaints, except as documented *Musculoskeletal Musculoskeletal: Reports system reviewed and no additional complaints, except as documented Integumentary/Breasts Skin/Breast: Reports system reviewed and no additional complaints, except as documented *Neurologic Neurologic: Reports system reviewed and no additional complaints, except as documented Psychiatric Psychiatric: Reports system reviewed and no additional complaints, except as documented Meds Home Medications and Allergies Home Medications Medication Instructions Recorded Confirmed Type gabapentin 400 mg capsule 400 mg PO TID Pain 10/03/22 03/20/23 History oxycodone 15 mg tablet 15 mg PO QID PRN Pain 10/03/22 03/20/23 History New Prescriptions to Start Prescriptions: Allergies Allergy/AdvReac Type Severity Reaction Status Date / Time garlic [GARLIC] Allergy Severe THROAT Verified 10/03/22 09:31 SWELLING famotidine [From PEPCID] Allergy Mild HYPER Verified 10/03/22 09:31 metoclopramide [From REGLAN] Allergy Mild HYPER Verified 10/03/22 09:31 Exam Data for Last 24 hours Vital signs and Labs for Last 24 Hours: Temp Pulse Resp BP Pulse Ox 100.1 F H 114 H 22 150/85 H 93 L 03/19/23 23:52 03/19/23 23:52 03/19/23 23:52 03/19/23 23:52 03/19/23 23:52 Laboratory Results - last 24 hr 03/19/23 19:45: ESR 9 03/19/23 19:45: C-Reactive Protein 11.4 H, Amylase 1108 H*, Procalcitonin 0.054 03/19/23 19:45: Sodium 143, Potassium 4.4, Chloride 104, Carbon Dioxide 29, Anion Gap 14.4, BUN 9, Creatinine 0.60 L, Estimated Creat Clear 261, Estimated GFR 139, Est GFR ( Amer) 168, Glucose 141 H, Calcium 9.2, Total Bilirubin
[2023-03-20 04:00] VITALS: BP 123/77; PULSE 110; RESP 20; TEMP 37.7; O2SAT 94; BMI 38.7
--- NOTE | 2023-03-20 06:36 | EXP.SURG.CON ---
History of Present Illness *Admission Date: 03/19/23 *Reason for visit:: Acute cholecystitis/gallstone pancreatitis *History of present illness: This is a 57-year-old gentleman seen in consultation from the primary service after presenting the emergency department with increasing abdominal pain. Please see HPI forwarded from admission H&P below. Forwarded from admission H&P: 57 year old male presented to ED for c/o abd pain with vomiting. Pt is a poor historian upon admission. Unable to answer most questions. States he has hx of pancreatic cancer. Denies diabetes. States pain started at 11 in the morning with vomiting. unrelated to eating. Does not know when last meal was. [place] [address], WBC 14.8, and CT scan result of acute pancreatitis and pericholecystic edema. Dr. Mckeon spoke with Dr. Pickering in the ED for surgical consultation. Dr. Mckeon called hospitalist team and the patient was admitted for further medical management and ultrasound of gallbladder for the A.M. IV antibiotics were ordered as well as IV pain medication. [facility] Disclaimer: The information contained in this section may have been updated after the patient was seen, as this information can be updated by other users. Medical History BMI 39.0-39.9,adult Erectile dysfunction Hypertension Lumbar radiculopathy Social History Smoking Status: Never smoker alcohol intake: never substance use type: denies use current occupational status: disabled Travel in the last 8 weeks: Inside the [place] household members: spouse housing: house current occupational exposures/hazards: No caffeine: No Review of Systems *Neurologic Neurologic: Reports system reviewed and no additional complaints, except as documented Meds Home Medications and Allergies Home Medications Medication Instructions Recorded Confirmed Type diclofenac sodium 1 % topical gel 2 g topical QID #100 grams 01/23/22 10/03/22 Rx (Arthritis Pain (diclofenac)) cyclobenzaprine 10 mg tablet 10 mg PO TID PRN muscle spasm #60 06/06/22 10/03/22 Rx tabs gabapentin 400 mg capsule 400 mg PO 10/03/22 10/03/22 History oxycodone 15 mg tablet 15 mg PO 10/03/22 10/03/22 History New Prescriptions to Start Prescriptions: Allergies Allergy/AdvReac Type Severity Reaction Status Date / Time garlic [GARLIC] Allergy Severe THROAT Verified 10/03/22 09:31 SWELLING famotidine [From PEPCID] Allergy Mild HYPER Verified 10/03/22 09:31 metoclopramide [From REGLAN] Allergy Mild HYPER Verified 10/03/22 09:31 Exam (Inpt) Vital signs and Labs for Last 24 Hours: Temp Pulse Resp BP Pulse Ox 100 F H 110 H 20 123/77 94 L 03/20/23 04:00 03/20/23 04:00 03/20/23 04:00 03/20/23 04:00 03/20/23 04:00 Laboratory Results - last 24 hr 03/19/23 19:45: ESR 9 03/19/23 19:45: C-Reactive Protein 11.4 H, Amylase 1108 H*, Procalcitonin 0.054 03/19/23 19:45: Sodium 143, Potassium 4.4, Chloride 104, Carbon Dioxide 29, Anion Gap 14.4, BUN 9, Creatinine 0.60 L, Estimated Creat Clear 261, Estimated GFR 139, Est GFR ( Amer) 168, Glucose 141 H, Calcium 9.2, Total Bilirubin 0.7, Direct Bilirubin 0.1, Conjugated Bilirubin 0.0, Indirect Bilirubin 0.6, Unconjugated Bilirubin 0.6, AST 120 H, ALT 78, Alkaline Phosphatase 167 H, Total Protein 7.4, Albumin 4.2, Lipase 64515 H 03/19/23 19:45: Lactate 1.6 03/19/23 19:45: WBC 14.8 H, RBC 5.80, Hgb 17.7, Hct 53.8 H, MCV 92.8, MCH 30.6, MCHC 32.9, RDW 13.4, Plt Count 227, MPV 9.6, Neut % (Auto) 75.3, Lymph % (Auto) 17.3, [place] % (Auto) 6.9, Eos % (Auto) 0.2, Baso % (Auto) 0.3, Neut # (Auto) 11.1 H, Lymph # (Auto) 2.6, [place] # (Auto) 1.0, Eos # (Auto) 0.0, Baso # (Auto) 0.1 03/19/23 21:58: SARS-CoV-2 (PCR) Not detected, Influenza A Untype (PCR) Not detected, Influenza Type B (PCR) Not detected I & O for Labs for Last 24 Hour
[2023-03-20 06:39] LABS: Basophils % 0.1 % (0.1-2.0); Hematocrit 50.5 % (42.0-52.0); Hemoglobin 16.6 g/dL (14.1-18.0); Lymphocytes # 1.1 K/mm3 (0.7-4.5); Lymphocytes % 4.8 % (10-50); Mean Corpuscular HGB Conc 32.9 g/dL (31.8-35.4); Mean Corpuscular Hemoglobin 30.6 pg (27.0-31.2); Mean Corpuscular Volume 93.1 fl (80-94); Mean Platelet Volume 9.3 fl (7.4-10.4); Monocytes # 1.2 K/mm3 (0.1-1.0); Monocytes % 5.1 % (1.7-9.3); Neutrophils # 20.6 K/mm3 (1.8-7.8); Platelet Count 184 K/mm3 (142-424); Red Blood Count 5.42 M/mm3 (4.60-6.20); Red Cell Distribution Width 13.5 % (11.5-17.5); White Blood Count 22.9 K/mm3 (4.8-10.8)
[2023-03-20 06:42] LABS: MANUAL DIFFERENTIAL MANUAL DIFFERENTIAL (MANUAL DIFF)
[2023-03-20 06:44] LABS: Chloride 102 mmol/L (98-107); Potassium 4.2 mmoL/L (3.5-5.1); Sodium 139 mmol/L (136-145)
[2023-03-20 06:46] LABS: Alanine Aminotransferase 76 U/L (12-78); Aspartate Amino Transferase 79 U/L (17-59); Blood Urea Nitrogen 11 mg/dl (9-20); Creatinine Clearance Estimated 219 mL/min (50-200); Estimated Glomerular Filt Rate 116 ml/min (>60); GFR (African American) 141 ML/MIN (>60)
[2023-03-20 06:47] LABS: Albumin Level 3.7 g/dl (3.5-5.0); Albumin/Globulin Ratio 1.2 (1.1-1.8); Alkaline Phosphatase 144 U/L (38-126); Anion Gap 12.2 mEq/L (5-15); Bilirubin,Total 1.2 mg/dl (0.2-1.3); Calcium 8.6 mg/dl (8.4-10.2); Carbon Dioxide 29 mmol/L (22.0-30.0); Globulin 3.1 g/dL (1.3-3.2); Glucose 217 mg/dl (74-100); Total Protein,Serum 6.8 g/dl (6.3-8.2)
[2023-03-20 07:00] LABS: Lymphocytes % 12 % (10-50); Monocytes % 6 % (2-9); Neutrophils % 82 % (42-76); Platelet Estimate Normal; RBC Morphology Normal; Total Cells Counted 100
--- NOTE | 2023-03-20 07:00 | US_ITS ---
FINAL REPORT CLINICAL HISTORY: rule out cholecystitis FINDINGS: RIGHT UPPER QUADRANT ULTRASOUND Sonographic images of the right upper quadrant were obtained. The pancreas is partially obscured. There is increased hepatic echogenicity consistent with fatty infiltration. There is gallbladder wall thickening measuring 6 mm. A small amount of pericholecystic fluid is identified. The common duct is normal measuring 4 mm. Limited images of the right kidney are normal. IMPRESSION: Fatty liver. Gallbladder wall thickening with a small amount of pericholecystic fluid which is nonspecific. If indicated, hepatobiliary scan may be helpful. Reviewed, Interpreted and Dictated by Yonatan Mccullough III, MD Transcribed by Lesley Claudio Authenticated and [facility]
[2023-03-20 07:33] VITALS: BP 165/82; PULSE 96; RESP 16; TEMP 36.4; O2SAT 94
[2023-03-20 07:44] LABS: Microscopic, Urine URINE MICROSCOPIC (MICROSCOPIC)
[2023-03-20 07:54] LABS: Appearance,Urine CLEAR (Clear); Bilirubin,Urine Negative (Negative); Blood, Urine TRACE-I (Negative); Color,Urine YELLOW (Yellow); Glucose,Urine (UA) TRACE (Negative); Ketones,Urine TRACE (Negative); Leukocyte Esterase,Urine Negative (Negative); Nitrate,Urine Negative (Negative); PH,Urine 5.5 (5.0-8.5); Protein,Urine Negative (Negative); Specific Gravity, Urine 1.025 (1.005-1.030)
[2023-03-20 08:00] VITALS: O2SAT 98
--- NOTE | 2023-03-20 08:13 | HMH.PHAINT1 ---
Pharmacy Intervention Comments: patient's home medications reviewed with patient and external pharmacy. -Raul Aponte, Pharm Student
[2023-03-20 08:25] LABS: WBC,Urine Occasional #/hpf (0-3)
[2023-03-20 08:27] LABS: Bacteria,Urine 1+ /lpf
--- NOTE | 2023-03-20 12:00 | EXP.ACUTE.PN ---
Subjective *Date: 03/20/23 *Time: 22:41 Interval history: Still having significant abdominal pain. Denies any nausea or vomiting. No diarrhea. Stable on room air. Would like to try some ice chips or clear liquids. Pain responds briefly to Dilaudid. Is on long-acting opiates at home. Denies any fever or chills. Medical Exam Vital signs and Labs for Last 24 Hours: Vital Signs Temp Pulse Pulse Resp BP BP Pulse Ox 03/20/23 15:05 98.2 F 70 16 123/72 95 03/20/23 08:00 98 03/20/23 07:33 97.6 F 96 H 16 165/82 H 94 L 03/20/23 04:00 100 F H 110 H 20 123/77 94 L 03/19/23 23:52 100.1 F H 114 H 22 150/85 H 93 L 03/19/23 23:17 98.6 F 113 H 19 150/85 H Intake and Output 03/20/23 03/20/23 03/20/23 07:59 15:59 23:59 Intake Total 100 / 1108 888 / 1108 120 / 1108 Output Total 300 / 300 0 / 300 0 / 300 Balance -200 / 808 888 / 808 120 / 808 Intake: Intake, Oral Amount 0 / 120 0 / 120 120 / 120 Intake, Total IV Amount 100 / 988 888 / 988 Piperacillin/Tazo 3.375 gm In 0 100 / 988 888 / 988 .9 % Sodium Chloride 50 ml @ 100 mls/hr IV Q8H [facility] Rx#: [id number] Output: Output, Urine Amount 300 / 300 0 / 300 0 / 300 Other: Number of Unmeasured Voids 1 1 1 Weight 132.766 kg Patient Weight 03/20/23 23:59 Weight 132.766 kg Laboratory Results - last 24 hr 03/19/23 19:45: ESR 9 03/19/23 19:45: C-Reactive Protein 11.4 H, Amylase 1108 H*, Procalcitonin 0.054 03/19/23 19:45: Sodium 143, Potassium 4.4, Chloride 104, Carbon Dioxide 29, Anion Gap 14.4, BUN 9, Creatinine 0.60 L, Estimated Creat Clear 261, Estimated GFR 139, Est GFR ( Amer) 168, Glucose 141 H, Calcium 9.2, Total Bilirubin 0.7, Direct Bilirubin 0.1, Conjugated Bilirubin 0.0, Indirect Bilirubin 0.6, Unconjugated Bilirubin 0.6, AST 120 H, ALT 78, Alkaline Phosphatase 167 H, Total Protein 7.4, Albumin 4.2, Lipase 31540 H 03/19/23 19:45: Lactate 1.6 03/19/23 19:45: WBC 14.8 H, RBC 5.80, Hgb 17.7, Hct 53.8 H, MCV 92.8, MCH 30.6, MCHC 32.9, RDW 13.4, Plt Count 227, MPV 9.6, Neut % (Auto) 75.3, Lymph % (Auto) 17.3, [place] % (Auto) 6.9, Eos % (Auto) 0.2, Baso % (Auto) 0.3, Neut # (Auto) 11.1 H, Lymph # (Auto) 2.6, [place] # (Auto) 1.0, Eos # (Auto) 0.0, Baso # (Auto) 0.1 03/19/23 21:58: SARS-CoV-2 (PCR) Not detected, Influenza A Untype (PCR) Not detected, Influenza Type B (PCR) Not detected 03/20/23 05:55: WBC 22.9 H* D, RBC 5.42, Hgb 16.6, Hct 50.5, MCV 93.1, MCH 30.6, MCHC 32.9, RDW 13.5, Plt Count 184, MPV 9.3, Neut % (Auto) 90.0 H, Lymph % (Auto) 4.8 L, [place] % (Auto) 5.1, Eos % (Auto) 0.0 L, Baso % (Auto) 0.1, Neut # (Auto) 20.6 H, Lymph # (Auto) 1.1, [place] # (Auto) 1.2 H, Eos # (Auto) 0.0, Baso # (Auto) 0.0, Total Counted 100, Neutrophils % (Manual) 82 H, Lymphocytes % (Manual) 12, Monocytes % (Manual) 6, Platelet Estimate Normal, RBC Morphology Normal 03/20/23 05:55: Sodium 139, Potassium 4.2, Chloride 102, Carbon Dioxide 29, Anion Gap 12.2, BUN 11, Creatinine 0.70, Estimated Creat Clear 219, Estimated GFR 116, Est GFR ( Amer) 141, Glucose 217 H D, Calcium 8.6, Total Bilirubin 1.2, AST 79 H D, ALT 76, Alkaline Phosphatase 144 H, Total Protein 6.8, Albumin 3.7 D, Globulin 3.1, Albumin/Globulin Ratio 1.2 03/20/23 05:55: Lipase 5756 H 03/20/23 07:27: Urine Color Yellow, Urine Appearance Clear, Urine pH 5.5, Ur Specific [place] 1.025, Urine Protein Negative, Urine Glucose (UA) Trace, Urine Ketones Trace, Urine Blood Trace-i, Urine Nitrate Negative, Urine Bilirubin Negative, Urine Urobilinogen 1.0, Ur Leukocyte Esterase Negative, Urine RBC None, Urine WBC Occasional, Ur Squamous Epith Cells None, Urine Bacteria 1+ I & O for Labs for Last 24 Hours: Intake & Output 03/17/23 03/18/23 03/19/23 03/20/23 23:59 23:59 23:59 23:59 Intake Total 2124 1108 / 1108 Output Total 300 / 300 Balance 2124 808 / 808 Weight 136.078 kg 132.766 kg Constitutional: Present mild distress and obese H
[2023-03-20 13:52] LABS: Lipase 5756 U/L (23-300)
[2023-03-20 15:05] VITALS: BP 123/72; PULSE 70; RESP 16; TEMP 36.8; O2SAT 95
[2023-03-20 20:00] VITALS: BP 153/71; PULSE 65; RESP 20; TEMP 36.9; O2SAT 96
[2023-03-21 04:00] VITALS: BP 152/92; PULSE 62; RESP 20; TEMP 36.9; O2SAT 92; BMI 39.1
[2023-03-21 06:33] LABS: Basophils % 0.2 % (0.1-2.0); Eosinophils # 0.1 K/mm3 (0.0-0.4); Eosinophils % 0.6 % (0.1-12.0); Hematocrit 43.6 % (42.0-52.0); Hemoglobin 14.5 g/dL (14.1-18.0); Lymphocytes # 3.6 K/mm3 (0.7-4.5); Lymphocytes % 24.7 % (10-50); Mean Corpuscular HGB Conc 33.3 g/dL (31.8-35.4); Mean Corpuscular Hemoglobin 30.7 pg (27.0-31.2); Mean Corpuscular Volume 92.2 fl (80-94); Mean Platelet Volume 9.2 fl (7.4-10.4); Monocytes # 0.8 K/mm3 (0.1-1.0); Monocytes % 5.6 % (1.7-9.3); Platelet Count 167 K/mm3 (142-424); Red Blood Count 4.73 M/mm3 (4.60-6.20); Red Cell Distribution Width 13.4 % (11.5-17.5); White Blood Count 14.5 K/mm3 (4.8-10.8)
[2023-03-21 06:43] LABS: Potassium 3.4 mmoL/L (3.5-5.1); Sodium 138 mmol/L (136-145)
[2023-03-21 06:44] LABS: Chloride 102 mmol/L (98-107)
[2023-03-21 06:45] LABS: Amylase 274 U/L (30-110)
[2023-03-21 06:46] LABS: Alanine Aminotransferase 48 U/L (12-78); Albumin Level 2.9 g/dl (3.5-5.0); Alkaline Phosphatase 106 U/L (38-126); Anion Gap 8.4 mEq/L (5-15); Aspartate Amino Transferase 49 U/L (17-59); Bilirubin,Total 0.9 mg/dl (0.2-1.3); Blood Urea Nitrogen 14 mg/dl (9-20); Calcium 8.2 mg/dl (8.4-10.2); Carbon Dioxide 31 mmol/L (22.0-30.0); Creatinine Clearance Estimated 221 mL/min (50-200); Estimated Glomerular Filt Rate 116 ml/min (>60); GFR (African American) 141 ML/MIN (>60); Globulin 2.9 g/dL (1.3-3.2); Glucose 115 mg/dl (74-100); Total Protein,Serum 5.8 g/dl (6.3-8.2)
--- NOTE | 2023-03-21 06:53 | EXP.SURG.PN ---
Subjective Patient reports: no new complaints, still having pain and pain is less Exam Data for Last 24 hours Vital signs and Labs for Last 24 Hours: Temp Pulse Resp BP Pulse Ox 98.4 F 62 20 152/92 H 92 L 03/21/23 04:00 03/21/23 04:00 03/21/23 04:00 03/21/23 04:00 03/21/23 04:00 Laboratory Results - last 24 hr 03/20/23 05:55: Total Counted 100, Neutrophils % (Manual) 82 H, Lymphocytes % (Manual) 12, Monocytes % (Manual) 6, Platelet Estimate Normal, RBC Morphology Normal 03/20/23 05:55: Lipase 5756 H 03/20/23 07:27: Urine Color Yellow, Urine Appearance Clear, Urine pH 5.5, Ur Specific [place] 1.025, Urine Protein Negative, Urine Glucose (UA) Trace, Urine Ketones Trace, Urine Blood Trace-i, Urine Nitrate Negative, Urine Bilirubin Negative, Urine Urobilinogen 1.0, Ur Leukocyte Esterase Negative, Urine RBC None, Urine WBC Occasional, Ur Squamous Epith Cells None, Urine Bacteria 1+ 03/21/23 06:06: WBC 14.5 H D, RBC 4.73, Hgb 14.5, Hct 43.6, MCV 92.2, MCH 30.7, MCHC 33.3, RDW 13.4, Plt Count 167, MPV 9.2, Neut % (Auto) 69.0, Lymph % (Auto) 24.7, [place] % (Auto) 5.6, Eos % (Auto) 0.6, Baso % (Auto) 0.2, Neut # (Auto) 10.0 H, Lymph # (Auto) 3.6, [place] # (Auto) 0.8, Eos # (Auto) 0.1, Baso # (Auto) 0.0 03/21/23 06:06: Sodium 138, Potassium 3.4 L, Chloride 102, Carbon Dioxide 31 H, Anion Gap 8.4, BUN 14 D, Creatinine 0.70, Estimated Creat Clear 221, Estimated GFR 116, Est GFR ( Amer) 141, Glucose 115 H, Calcium 8.2 L, Total Bilirubin 0.9, AST 49 D, ALT 48 D, Alkaline Phosphatase 106, Total Protein 5.8 L, Albumin 2.9 L D, Globulin 2.9, Albumin/Globulin Ratio 1.0 L, Amylase 274 H I & O for Last 24 hours: Intake & Output 03/18/23 03/19/23 03/20/23 03/21/23 11:59 11:59 11:59 11:59 Intake Total 2225 / 2225 2362 / 2362 Output Total 300 / 300 0 / 0 Balance 1925 / 1925 2362 / 2362 Weight 292 lb 11.2 oz 295 lb 6 oz Constitutional Constitutional: no acute distress *Routine Respiratory Exam Respiratory: Absent respiratory distress *Routine Cardiovascular Exam Cardiovascular: Absent tachycardia *Routine Abdominal Exam Abdominal: Present soft and tenderness (Less tender in mid/upper abdomen) Progress Note: A&P Assessment and plan (1) Acute pancreatitis: Status: Acute Assessment and plan: Seemingly improving Follow-up a.m. labs (2) Acute cholecystitis: Status: Acute Assessment and plan: Continue IV antibiotics for now Tentatively plan cholecystectomy for March 22 (pending results of a.m. labs) (3) Transaminitis: Status: Acute (4) Class 2 obesity: Status: Chronic
[2023-03-21 07:00] LABS: Lipase 2533 U/L (23-300)
[2023-03-21 08:00] VITALS: BP 138/85; PULSE 71; RESP 16; TEMP 36.5; O2SAT 94
[2023-03-21 08:13] LABS: Lactate Dehydrogenase 156 U/L (313-618)
--- NOTE | 2023-03-21 15:23 | EXP.ACUTE.PN ---
Subjective *Date: 03/21/23 *Time: 11:28 Interval history: Pain doing better this morning. Tolerating p.o. intake. No nausea or vomiting. Stable on room air. Hemodynamically stable. Patient afebrile. Drastic improvement from yesterday. Medical Exam Vital signs and Labs for Last 24 Hours: Vital Signs Temp Pulse Resp BP Pulse Ox 03/21/23 08:00 97.7 F 71 16 138/85 94 L 03/21/23 04:00 98.4 F 62 20 152/92 H 92 L 03/20/23 20:00 98.4 F 65 20 153/71 H 96 Intake and Output 03/20/23 03/21/23 03/21/23 23:59 07:59 15:59 Intake Total 120 / 2462 1354 / 2814 1460 / 2814 Output Total 0 / 300 0 / 0 0 / 0 Balance 120 / 2162 1354 / 2814 1460 / 2814 Intake: Intake, Oral Amount 120 / 120 1460 / 1460 Intake, Total IV Amount 1354 / 1354 Lactated Ringers 1000ML 1,000 1254 / 1254 ml @ 150 mls/hr IV .[id number] [facility] Rx#:[id number] Piperacillin/Tazo 3.375 gm In 0 100 / 100 .9 % Sodium Chloride 50 ml @ 100 mls/hr IV Q8H [facility] Rx#: [id number] Output: Output, Urine Amount 0 / 300 0 / 0 0 / 0 Other: Number of Unmeasured Voids 1 1 5 Weight 133.98 kg Patient Weight 03/21/23 23:59 Weight 133.98 kg Laboratory Results - last 24 hr 03/21/23 06:06: WBC 14.5 H D, RBC 4.73, Hgb 14.5, Hct 43.6, MCV 92.2, MCH 30.7, MCHC 33.3, RDW 13.4, Plt Count 167, MPV 9.2, Neut % (Auto) 69.0, Lymph % (Auto) 24.7, [place] % (Auto) 5.6, Eos % (Auto) 0.6, Baso % (Auto) 0.2, Neut # (Auto) 10.0 H, Lymph # (Auto) 3.6, [place] # (Auto) 0.8, Eos # (Auto) 0.1, Baso # (Auto) 0.0 03/21/23 06:06: Sodium 138, Potassium 3.4 L, Chloride 102, Carbon Dioxide 31 H, Anion Gap 8.4, BUN 14 D, Creatinine 0.70, Estimated Creat Clear 221, Estimated GFR 116, Est GFR ( Amer) 141, Glucose 115 H, Calcium 8.2 L, Total Bilirubin 0.9, AST 49 D, ALT 48 D, Alkaline Phosphatase 106, Total Protein 5.8 L, Albumin 2.9 L D, Globulin 2.9, Albumin/Globulin Ratio 1.0 L, Amylase 274 H, Lipase 2533 H 03/21/23 06:06: Lactate Dehydrogenase 156 L I & O for Labs for Last 24 Hours: Intake & Output 03/18/23 03/19/23 03/20/23 03/21/23 23:59 23:59 23:59 23:59 Intake Total 2125 / 2175 1108 / 2462 2814 / 2814 Output Total 300 / 300 0 / 0 Balance 2125 / 2175 808 / 2162 2814 / 2814 Weight 136.078 kg 132.766 kg 133.98 kg Constitutional: Present mild distress and obese Head: Present atraumatic and normocephalic ENT: Present normal exam Neck: Present normal inspection Respiratory: Present normal respiratory effort; Absent rhonchi, wheezes or crackles Cardiac: Present Reg Rate and Rhythm GI: Present distention, tenderness (Minimal, significant improvement) and normal bowel sounds Rectal (male): Present deferred Extremities: Present normal inspection and full ROM Skin: Present intact; Absent erythema Neuro: Present Grossly Intact, alert, awake, oriented x 3 and moves all extremities Assessment and Plan *Assessment and plan (1) Acute pancreatitis: Status: Acute Category: Medical Code(s): K85.90 - Acute pancreatitis without necrosis or infection, unspecified (2) Acute cholecystitis: Status: Acute Category: Medical Code(s): K81.0 - Acute cholecystitis (3) Transaminitis: Status: Acute Category: Medical Code(s): R74.01 - Elevation of levels of liver transaminase levels (4) Class 2 obesity: Status: Chronic Category: Medical Code(s): E66.9 - Obesity, unspecified Plan 57 year old male presented to ED for c/o abd pain with vomiting. Pt is a poor historian upon admission. Unable to answer most questions. States he has hx of pancreatic cancer. Denies diabetes. States pain started at 11 in the morning with vomiting. unrelated to eating. Does not know when last meal was. [place] [address], WBC 14.8, and CT scan result of acute pancreatitis and pericholecystic edema. Lipase improved today to 5000. Still having significant pain. Ini
[2023-03-21 15:54] VITALS: BMI 38.8
[2023-03-21 16:00] VITALS: BP 157/76; PULSE 61; RESP 20; TEMP 36.9; O2SAT 99
[2023-03-21 20:00] VITALS: BP 132/68; PULSE 68; RESP 16; TEMP 36.6; O2SAT 98
[2023-03-22] VITALS (23 sets, daily range): BP systolic 116–188; BP diastolic 64–98; PULSE 53–87; RESP 16–21; TEMP 36.1–43; O2SAT 92–98; BMI 39.2
--- NOTE | 2023-03-22 00:48 | PC.NURSE ---
Resting in bed, no c/o voiced. NPO after midnight
--- NOTE | 2023-03-22 06:51 | EXP.SURG.PN ---
Subjective Patient reports: no new complaints Exam Data for Last 24 hours Vital signs and Labs for Last 24 Hours: Temp Pulse Resp BP Pulse Ox 98 F 68 16 132/68 98 03/21/23 20:00 03/21/23 20:00 03/21/23 20:00 03/21/23 20:00 03/21/23 20:00 Laboratory Results - last 24 hr 03/21/23 06:06: Sodium 138, Potassium 3.4 L, Chloride 102, Carbon Dioxide 31 H, Anion Gap 8.4, BUN 14 D, Creatinine 0.70, Estimated Creat Clear 221, Estimated GFR 116, Est GFR ( Amer) 141, Glucose 115 H, Calcium 8.2 L, Total Bilirubin 0.9, AST 49 D, ALT 48 D, Alkaline Phosphatase 106, Lactate Dehydrogenase 156 L, Total Protein 5.8 L, Albumin 2.9 L D, Globulin 2.9, Albumin/Globulin Ratio 1.0 L, Amylase 274 H, Lipase 2533 H I & O for Last 24 hours: Intake & Output 03/19/23 03/20/23 03/21/23 03/22/23 11:59 11:59 11:59 11:59 Intake Total 2225 / 2225 3082 / 3082 1281 / 1281 Output Total 300 / 300 0 / 0 0 / 0 Balance 1925 / 1925 3082 / 3082 1281 / 1281 Weight 292 lb 11.2 oz 295 lb 6 oz 293 lb 3.437 oz Constitutional Constitutional: no acute distress *Routine Respiratory Exam Respiratory: Absent respiratory distress *Routine Cardiovascular Exam Cardiovascular: Absent tachycardia *Routine Abdominal Exam Abdominal: Present soft Progress Note: A&P Assessment and plan (1) Acute pancreatitis: Status: Acute Assessment and plan: Follow-up morning labs (2) Acute cholecystitis: Status: Acute Assessment and plan: Cholecystectomy later today (pending labs)
[2023-03-22 07:37] LABS: Chloride 104 mmol/L (98-107); Potassium 3.9 mmoL/L (3.5-5.1); Sodium 139 mmol/L (136-145)
[2023-03-22 07:38] LABS: Basophils % 0.4 % (0.1-2.0); Eosinophils # 0.2 K/mm3 (0.0-0.4); Eosinophils % 2.3 % (0.1-12.0); Hematocrit 44.2 % (42.0-52.0); Hemoglobin 14.3 g/dL (14.1-18.0); Lymphocytes # 2.2 K/mm3 (0.7-4.5); Lymphocytes % 22.9 % (10-50); Mean Corpuscular HGB Conc 32.3 g/dL (31.8-35.4); Mean Corpuscular Hemoglobin 30.2 pg (27.0-31.2); Mean Corpuscular Volume 93.6 fl (80-94); Mean Platelet Volume 9.5 fl (7.4-10.4); Monocytes # 0.7 K/mm3 (0.1-1.0); Monocytes % 7.4 % (1.7-9.3); Neutrophils # 6.5 K/mm3 (1.8-7.8); Platelet Count 175 K/mm3 (142-424); Red Blood Count 4.72 M/mm3 (4.60-6.20); Red Cell Distribution Width 13.4 % (11.5-17.5); White Blood Count 9.7 K/mm3 (4.8-10.8)
[2023-03-22 07:39] LABS: Blood Urea Nitrogen 9 mg/dl (9-20); Creatinine Clearance Estimated 258 mL/min (50-200); Estimated Glomerular Filt Rate 139 ml/min (>60); GFR (African American) 168 ML/MIN (>60)
[2023-03-22 07:40] LABS: Alanine Aminotransferase 41 U/L (12-78); Albumin Level 3.2 g/dl (3.5-5.0); Albumin/Globulin Ratio 1.1 (1.1-1.8); Alkaline Phosphatase 106 U/L (38-126); Anion Gap 8.9 mEq/L (5-15); Aspartate Amino Transferase 39 U/L (17-59); Bilirubin,Total 0.7 mg/dl (0.2-1.3); Calcium 8.7 mg/dl (8.4-10.2); Carbon Dioxide 30 mmol/L (22.0-30.0); Glucose 123 mg/dl (74-100); Lipase 1031 U/L (23-300); Total Protein,Serum 6.2 g/dl (6.3-8.2)
--- NOTE | 2023-03-22 09:38 | P.PN_ITS ---
Subjective *Date: 03/22/23 *Time: 09:38 Medical Exam Vital signs and Labs for Last 24 Hours: Vital Signs Temp Pulse Resp BP Pulse Ox 03/22/23 08:00 97 03/22/23 07:50 98.1 F 57 L 18 137/66 98 03/22/23 04:00 98.1 F 53 L 16 116/64 94 L 03/21/23 20:00 98 F 68 16 132/68 98 03/21/23 16:00 98.4 F 61 20 157/76 H 99 Intake and Output 03/21/23 03/22/23 03/22/23 23:59 07:59 15:59 Intake Total 541 / 3355 Output Total 0 / 0 Balance 541 / 3355 Intake: Intake, Oral Amount 2000 Output: Output, Urine Amount 0 / 0 Other: Number of Unmeasured Voids 1 Weight 134.173 kg Patient Weight 03/22/23 23:59 Weight 134.173 kg Laboratory Results - last 24 hr 03/22/23 07:14: WBC 9.7 D, RBC 4.72, Hgb 14.3, Hct 44.2, MCV 93.6, MCH 30.2, MCHC 32.3, RDW 13.4, Plt Count 175, MPV 9.5, Neut % (Auto) 67.0, Lymph % (Auto) 22.9, [place] % (Auto) 7.4, Eos % (Auto) 2.3, Baso % (Auto) 0.4, Neut # (Auto) 6.5, Lymph # (Auto) 2.2, [place] # (Auto) 0.7, Eos # (Auto) 0.2, Baso # (Auto) 0.0, Sodium 139, Potassium 3.9, Chloride 104, Carbon Dioxide 30, Anion Gap 8.9, BUN 9 D, Creatinine 0.60 L, Estimated Creat Clear 258, Estimated GFR 139, Est GFR ( Amer) 168, Glucose 123 H, Calcium 8.7, Total Bilirubin 0.7, AST 39, ALT 41, Alkaline Phosphatase 106, Total Protein 6.2 L, Albumin 3.2 L D, Globulin 3.0, Albumin/Globulin Ratio 1.1, Lipase 1031 H I & O for Labs for Last 24 Hours: Intake & Output 03/19/23 03/20/23 03/21/23 03/22/23 23:59 23:59 23:59 23:59 Intake Total 2124 / 2174 1108 / 2462 3355 / 3355 Output Total 300 / 300 0 / 0 Balance 2124 808 / 2162 3355 / 3355 Weight 136.078 kg 132.766 kg 133 kg 134.173 kg The patient's infection will respond to the chosen ABx?: Yes Is the patient receiving the right drug, dose, and route?: Yes Could a more targeted ABx be ordered?: No (PT WBC WNL NOW, AFEBRILE, ACUTE PANCREATITIS)
--- NOTE | 2023-03-22 10:12 | PC.NURSE ---
COURTESY TECH NOTE; ROUNDED ON PT 0810, PT DENIED THE NEED FOR ASSISTANCE WITH RESTROOM AND NEED TO REPOSITION. CALL LIGHT WITHIN REACH, NO FURTHER REQUESTS AT THIS TIME ONDINA DUMONT
--- NOTE | 2023-03-22 10:33 | P.PN_ITS ---
[facility] Disclaimer: The information contained in this section may have been updated after the patient was seen, as this information can be updated by other users. Medical History BMI 39.0-39.9,adult Erectile dysfunction Hypertension Lumbar radiculopathy Social History Smoking Status: Never smoker alcohol intake: never substance use type: denies use current occupational status: disabled Travel in the last 8 weeks: Inside the [employer] States household members: spouse housing: house current occupational exposures/hazards: No caffeine: No [facility] Anesthesia Checklist Patient Identification Patient Identification: Arm Band and Verbal (Name & ) Structural Data Admitted From: Home Planned Operative Procedure/s: lap GB Consent for Planned Operative Procedure(s) Verified: Yes Verified Documents: Surgical Consent and History and Physical NPO Status Verified Time NPO: 10:34 Additional verifications Anesthesia Reactions: No Hx Blood Transfusions: No Blood Transfusion Reaction: No Airway Assessment C-Spine Mobility Assessed: Yes TMJ Mobility Assessed: Yes Dentition: Good Dentition Neurological Assessment Level of Consciousness: Awake and Alert Hx Seizures: No Numbness or tingling in extremities: No Anesthesia Plan Anesthesia Type: General
--- NOTE | 2023-03-22 12:55 | EXP.OP.NOTE ---
Date of procedure: 03/22/23 Pre-op Diagnosis:: Acute calculus cholecystitis Gallstone pancreatitis Post-op Diagnosis:: Same Procedure performed:: Laparoscopic cholecystectomy Surgeon:: Gibran Pickering MD OPERATING ROOM SPECIALIST:: Katey Witt Anesthesia: GETA Estimated blood loss (mL): 15 Operative findings:: Wall thickening and fairly significant inflammatory changes and/around infundibulum Cholangiogram not attempted secondary to above findings Dome down approach utilized secondary to significant infundibular thickening/dilation of cystic duct Operative note:: After informed consent was obtained, the patient was taken to the operating room and placed in the supine position. General anesthesia was induced and the abdomen was prepped and draped in a sterile fashion. After infiltration with local anesthetic an infraumbilical incision was made. A Veress needle was placed in position. The abdomen was insufflated. A 5 mm optical trocar was placed in position. Under direct visualization, a 12 mm trocar was placed in the subxiphoid position and 2 additional 5 mm trocars were placed in the right upper quadrant. The gallbladder was elevated up and over the liver margin. Fairly significant tissue thickening noted. The tissue around the cystic artery was carefully dissected. 2 clips were placed proximally and the artery duct was transected with harmonic tamia. Fairly severe tissue thickening and dilation of the cystic duct/infundibulum noted. The decision was made to forego any attempts at cholangiogram. The decision was also made to proceed with a dome down approach . Harmonic tamia were then utilized to dissect the gallbladder away from the liver margin. Endoloops (x2) were used to control the infundibular margin. The gallbladder was transected with harmonic tamia and then was placed in a retrieval bag prior to removal through the subxiphoid trocar site. The right upper quadrant was thoroughly irrigated. No active bleeding or bile leak was noted. Fascia at the subxiphoid trocar site was reapproximated utilizing the NeoClose device. The remaining trocars were removed. All wounds were irrigated and skin was closed with 4-0 Monocryl in a subcuticular fashion. Steri-Strips were applied. The patient's anesthetic agents were reversed and extubation was completed prior to transfer to recovery in stable condition. Condition: stable Disposition: PACU Specimens:: Gallbladder Complications:: No immediate
--- NOTE | 2023-03-22 13:04 | P.PNANES_ITS ---
[facility] Anesthesia Record Part I Anesthesia Record I Intake, IV Amount: 800 Estimated blood loss (mL): 10 Urine output (mL): 0 Blood Pressure: 183/96 SaO2: 93 Pulse Rate: 65 Respiratory Rate: 21 Temperature: 97 F Patient is:: Awake Stable to PACU at:: 13:05
--- NOTE | 2023-03-22 14:02 | PC.NURSE ---
Pt. back from surgery and got a dose of pain meds. 4 LAP sites that are c/d/i.
--- NOTE | 2023-03-22 17:02 | EXP.ACUTE.PN ---
Subjective *Date: 03/22/23 *Time: 17:02 Interval history: Patient feeling well today. Pain improving. N.p.o. in anticipation of cholecystectomy. No fever, vomiting. No bowel movement since admission. Medical Exam Vital signs and Labs for Last 24 Hours: Vital Signs Temp Pulse Pulse Resp BP BP Pulse Ox 03/22/23 15:55 97.8 F 77 17 163/81 H 96 03/22/23 15:25 97.8 F 78 17 149/69 H 95 03/22/23 14:55 97.7 F 68 18 167/89 H 94 L 03/22/23 14:25 97.8 F 67 18 166/88 H 96 03/22/23 14:10 97.7 F 71 18 163/82 H 92 L 03/22/23 13:55 97.6 F 61 18 162/72 H 98 03/22/23 13:40 97.8 F 62 18 170/98 H 94 L 03/22/23 13:15 57 L 18 156/98 H 96 03/22/23 13:35 65 18 169/83 H 95 03/22/23 13:25 62 18 188/77 H 95 03/22/23 13:05 97.0 F L 59 L 18 183/96 H 94 L 03/22/23 08:00 97 03/22/23 07:50 98.1 F 57 L 18 137/66 98 03/22/23 04:00 98.1 F 53 L 16 116/64 94 L 03/21/23 20:00 98 F 68 16 132/68 98 03/22/23 13:09 97 F L 65 21 183/96 H Intake and Output 03/22/23 03/22/23 03/22/23 07:59 15:59 23:59 Intake Total 800 / 800 Balance 800 / 800 Intake: Intake, Total IV Amount 800 / 800 Other: Weight 134.173 kg Patient Weight 03/22/23 23:59 Weight 134.173 kg Laboratory Results - last 24 hr 03/22/23 07:14: WBC 9.7 D, RBC 4.72, Hgb 14.3, Hct 44.2, MCV 93.6, MCH 30.2, MCHC 32.3, RDW 13.4, Plt Count 175, MPV 9.5, Neut % (Auto) 67.0, Lymph % (Auto) 22.9, [place] % (Auto) 7.4, Eos % (Auto) 2.3, Baso % (Auto) 0.4, Neut # (Auto) 6.5, Lymph # (Auto) 2.2, [place] # (Auto) 0.7, Eos # (Auto) 0.2, Baso # (Auto) 0.0, Sodium 139, Potassium 3.9, Chloride 104, Carbon Dioxide 30, Anion Gap 8.9, BUN 9 D, Creatinine 0.60 L, Estimated Creat Clear 258, Estimated GFR 139, Est GFR ( Amer) 168, Glucose 123 H, Calcium 8.7, Total Bilirubin 0.7, AST 39, ALT 41, Alkaline Phosphatase 106, Total Protein 6.2 L, Albumin 3.2 L D, Globulin 3.0, Albumin/Globulin Ratio 1.1, Lipase 1031 H I & O for Labs for Last 24 Hours: Intake & Output 03/19/23 03/20/23 03/21/23 03/22/23 23:59 23:59 23:59 23:59 Intake Total 2125 / 2175 1108 / 2462 3355 / 3355 800 / 800 Output Total 300 / 300 0 / 0 Balance 2125 / 2175 808 / 2162 3355 / 3355 800 / 800 Weight 136.078 kg 132.766 kg 133 kg 134.173 kg Constitutional: Present no acute distress and obese Head: Present atraumatic and normocephalic ENT: Present normal exam Neck: Present normal inspection Respiratory: Present normal respiratory effort; Absent rhonchi, wheezes or crackles Cardiac: Present Reg Rate and Rhythm GI: Present distention, tenderness (marginal) and normal bowel sounds Rectal (male): Present deferred Extremities: Present normal inspection and full ROM Skin: Present intact; Absent erythema Neuro: Present Grossly Intact, alert, awake, oriented x 3 and moves all extremities Assessment and Plan *Assessment and plan (1) Acute pancreatitis: Status: Acute Qualifiers: Pancreatitis type: biliary Category: Medical Code(s): K85.90 - Acute pancreatitis without necrosis or infection, unspecified (2) Acute cholecystitis: Status: Acute Category: Medical Code(s): K81.0 - Acute cholecystitis (3) Transaminitis: Status: Acute Category: Medical Code(s): R74.01 - Elevation of levels of liver transaminase levels (4) Class 2 obesity: Status: Chronic Category: Medical Code(s): E66.9 - Obesity, unspecified Plan 57 year old male presented to ED for c/o abd pain with vomiting. Seeing improvement in pancreatitis. Going for cholecystectomy today. Surgery consulted and assisting with care. Problems addressed as follows: ACUTE PANCREATITIS Acute cholecystitis -Pain improving. Significant improvement in lipase, 1000 today. -Going for cholecystectomy today. Discussed case with surgery. We will monitor overnight, adva
--- NOTE | 2023-03-22 18:48 | PC.NURSE ---
COURTESY TECH NOTE; PT AMBULATED ACROSS HALLWAY TO VISIT FAMILY MEMBER IN 217, ACTIVITY TOLERATED WELL Gege KEATING, SRNA
[2023-03-23] VITALS: BP 121/60; PULSE 61; RESP 16; TEMP 36.6; O2SAT 92
[2023-03-23 04:00] VITALS: BP 142/73; PULSE 51; RESP 16; TEMP 36.7; O2SAT 95; BMI 39.1
--- NOTE | 2023-03-23 05:21 | PC.NURSE ---
MEDICATED TWICE THIS SHIFT FOR POST-OP PAIN. VITAL SIGNS ARE STABLE/AFEBRILE. . HAS BOWEL SOUNDS X 4. ABDOMEN APPEARS DISTENDED. LAP SITES X 4, NO S/S OF COMPLICATIONS. PATIENT STATES HE IS PASSING GAS AND HAS HAD 1 BM THIS AM. USES INCENTIVE SPIROMETER INDEPENDENTLY.
[2023-03-23 06:51] LABS: Basophils % 0.1 % (0.1-2.0); Eosinophils % 0.3 % (0.1-12.0); Hematocrit 44.4 % (42.0-52.0); Hemoglobin 14.5 g/dL (14.1-18.0); Lymphocytes # 1.6 K/mm3 (0.7-4.5); Lymphocytes % 11.8 % (10-50); Mean Corpuscular HGB Conc 32.6 g/dL (31.8-35.4); Mean Corpuscular Hemoglobin 30.1 pg (27.0-31.2); Mean Corpuscular Volume 92.5 fl (80-94); Mean Platelet Volume 9.8 fl (7.4-10.4); Monocytes # 0.8 K/mm3 (0.1-1.0); Monocytes % 6.3 % (1.7-9.3); Neutrophils # 10.9 K/mm3 (1.8-7.8); Neutrophils % 81.6 % (37.0-80.0); Platelet Count 197 K/mm3 (142-424); Red Cell Distribution Width 13.2 % (11.5-17.5); White Blood Count 13.4 K/mm3 (4.8-10.8)
[2023-03-23 07:05] LABS: Chloride 104 mmol/L (98-107)
[2023-03-23 07:06] LABS: Potassium 4.1 mmoL/L (3.5-5.1); Sodium 138 mmol/L (136-145)
[2023-03-23 07:08] LABS: Alanine Aminotransferase 44 U/L (12-78); Alkaline Phosphatase 105 U/L (38-126); Aspartate Amino Transferase 54 U/L (17-59); Bilirubin,Total 0.5 mg/dl (0.2-1.3); Blood Urea Nitrogen 12 mg/dl (9-20); Creatinine Clearance Estimated 257 mL/min (50-200); Estimated Glomerular Filt Rate 139 ml/min (>60); GFR (African American) 168 ML/MIN (>60)
[2023-03-23 07:09] LABS: Albumin Level 3.3 g/dl (3.5-5.0); Anion Gap 8.1 mEq/L (5-15); Calcium 8.5 mg/dl (8.4-10.2); Carbon Dioxide 30 mmol/L (22.0-30.0); Globulin 3.3 g/dL (1.3-3.2); Glucose 132 mg/dl (74-100); Lipase 401 U/L (23-300); Total Protein,Serum 6.6 g/dl (6.3-8.2)
[2023-03-23 07:18] VITALS: BP 167/80; PULSE 62; RESP 16; TEMP 37.1; O2SAT 99
[2023-03-23 07:29] VITALS: O2SAT 97
--- NOTE | 2023-03-23 07:43 | EXP.DC.SUM ---
General Admission date:: 03/19/23 Discharge date: 03/23/23 HPI HPI HPI: This is a 57-year-old gentleman seen in consultation from the primary service after presenting the emergency department with increasing abdominal pain. Please see HPI forwarded from admission H&P below. Forwarded from admission H&P: 57 year old male presented to ED for c/o abd pain with vomiting. Pt is a poor historian upon admission. Unable to answer most questions. States he has hx of pancreatic cancer. Denies diabetes. States pain started at 11 in the morning with vomiting. unrelated to eating. Does not know when last meal was[place] [address], WBC 14.8, and CT scan result of acute pancreatitis and pericholecystic edema. Dr. Mckeon spoke with Dr. Pickering in the ED for surgical consultation. Dr. Mckeon called hospitalist team and the patient was admitted for further medical management and ultrasound of gallbladder for the A.M. IV antibiotics were ordered as well as IV pain medication. Hospital Course Hospital Course Hospital Course: 57 year old male presented to ED for c/o abd pain with vomiting. Found to have pancreatitis and cholecystitis. Status post cholecystectomy on 03/22. Surgery consulted and assisting with care. Problems addressed as follows: ACUTE PANCREATITIS Acute cholecystitis -Presented with severe abdominal pain, lipase elevated above 20,000. Imaging of abdomen showed concern for cholecystitis as well as pancreatitis. Surgery was consulted. Patient's pancreatitis gradually improved. Cholecystectomy was performed prior to discharge due to concern this was the likely cause for his pancreatitis. Lipase continued to improve during hospitalization, approximately 400 on day of discharge. White cell count normalized. Treated with empiric IV Zosyn during hospitalization. We will discontinue antibiotics at discharge, no clear indication for further needed. Would benefit from repeat CMP and CBC in 1 week to monitor for stability. Patient's pain was treated with his home oxycodone as well as intermittent IV Dilaudid. Has had gradual improvement, minimal pain with eating. Continue to advance diet as tolerated. In regard to patient's pain, recommend he take 1-2 additional tablets of his pain medication from his home stock daily for the next 3 to 5 days given his postop abdomen, inflammation from cholecystitis and pancreatitis. Discussed his need to comply with his pain regimen and adhere to pill counts with his pain clinic. I feel at this time it would be better to use the extra day supply that he has at home intermittently for breakthrough pain then to prescribe an additional prescription complicating his [place]. Patient states understanding of plan. Stable for discharge home. FOllow-up with Surgery in the coming weeks. Exam Data for Last 24 hours Vital signs and Labs for Last 24 Hours: Temp Pulse Resp BP Pulse Ox 98.7 F 62 16 167/80 H 97 03/23/23 07:18 03/23/23 07:18 03/23/23 07:18 03/23/23 07:18 03/23/23 07:29 Laboratory Results - last 24 hr 03/23/23 06:35: WBC 13.4 H D, RBC 4.80, Hgb 14.5, Hct 44.4, MCV 92.5, MCH 30.1, MCHC 32.6, RDW 13.2, Plt Count 197, MPV 9.8, Neut % (Auto) 81.6 H, Lymph % (Auto) 11.8, [place] % (Auto) 6.3, Eos % (Auto) 0.3, Baso % (Auto) 0.1, Neut # (Auto) 10.9 H, Lymph # (Auto) 1.6, [place] # (Auto) 0.8, Eos # (Auto) 0.0, Baso # (Auto) 0.0, Sodium 138, Potassium 4.1, Chloride 104, Carbon Dioxide 30, Anion Gap 8.1, BUN 12 D, Creatinine 0.60 L, Estimated Creat Clear 257, Estimated GFR 139, Est GFR ( Amer) 168, Glucose 132 H, Calcium 8.5, Total Bilirubin 0.5, AST 54 D, ALT 44, Alkaline Phosphatase 105, Total Protein 6.6, Albumin 3.3 L, Globulin 3.3 H, Albumin/Globulin Ratio 1.0 L, Lipase 401 H I & O for Last 24 hours: Intake & Output 03/20/23 03/21/23 03/22/23 03/23/23 23:59 23:59 23:59 23:59 Intake Total 1108 / 2462 3355 / 3355 970 / 1450 1020 / 1020 Output Total 300 /
--- NOTE | 2023-03-23 08:44 | EXP.SURG.PN ---
Subjective Patient reports: no new complaints and feels better Exam Data for Last 24 hours Vital signs and Labs for Last 24 Hours: Temp Pulse Resp BP Pulse Ox 98.7 F 62 16 167/80 H 97 03/23/23 07:18 03/23/23 07:18 03/23/23 07:18 03/23/23 07:18 03/23/23 07:29 Laboratory Results - last 24 hr 03/23/23 06:35: WBC 13.4 H D, RBC 4.80, Hgb 14.5, Hct 44.4, MCV 92.5, MCH 30.1, MCHC 32.6, RDW 13.2, Plt Count 197, MPV 9.8, Neut % (Auto) 81.6 H, Lymph % (Auto) 11.8, [place] % (Auto) 6.3, Eos % (Auto) 0.3, Baso % (Auto) 0.1, Neut # (Auto) 10.9 H, Lymph # (Auto) 1.6, [place] # (Auto) 0.8, Eos # (Auto) 0.0, Baso # (Auto) 0.0, Sodium 138, Potassium 4.1, Chloride 104, Carbon Dioxide 30, Anion Gap 8.1, BUN 12 D, Creatinine 0.60 L, Estimated Creat Clear 257, Estimated GFR 139, Est GFR ( Amer) 168, Glucose 132 H, Calcium 8.5, Total Bilirubin 0.5, AST 54 D, ALT 44, Alkaline Phosphatase 105, Total Protein 6.6, Albumin 3.3 L, Globulin 3.3 H, Albumin/Globulin Ratio 1.0 L, Lipase 401 H I & O for Last 24 hours: Intake & Output 03/20/23 03/21/23 03/22/23 03/23/23 11:59 11:59 11:59 11:59 Intake Total 2225 / 2225 3082 / 3082 1281 / 1281 1989 / 1989 Output Total 300 / 300 0 / 0 0 / 0 301 / 301 Balance 1924 / 192 3082 / 3082 1281 / 1281 168 / 1689 Weight 292 lb 11.2 oz 295 lb 6 oz 295 lb 12.8 oz 295 lb 1.6 oz Constitutional Constitutional: no acute distress *Routine Respiratory Exam Respiratory: Present normal respiratory effort; Absent respiratory distress *Routine Cardiovascular Exam Cardiovascular: Absent tachycardia *Routine Abdominal Exam Abdominal: Present soft Comments: Dressings intact. No spreading cellulitis. Progress Note: A&P Assessment and plan (1) Acute pancreatitis: Status: Acute Assessment and plan: With diet advancement (low fat) the patient has showed continued biochemical and symptomatic improvement. Okay from surgical standpoint for discharge home with close outpatient follow-up. (2) Acute cholecystitis: Status: Acute Assessment and plan: Overall, doing well status post laparoscopic cholecystectomy. Okay from surgical standpoint for discharge home with postcholecystectomy instructions .
--- NOTE | 2023-03-23 08:56 | PC.NURSE ---
COURTESY TECH NOTE; ROUNDED ON PT 0735, PT DENIED NEED FOR DRINK, ASSISTANCE WITH RESTROOM, AND NEED TO REPOSITION IN BED. CALL LIGHT WITHIN REACH, NO FURTHER REQUESTS AT THIS TIME ONDINA DUMONT
[2023-03-23 10:46] VITALS: BP 177/76; PULSE 53; RESP 18; TEMP 37; O2SAT 98
[2023-03-26 08:22] VITALS: BP 169/83; PULSE 65; TEMP 36.1
--- NOTE | 2023-03-26 08:22 | EXP.ANES.II ---
[facility] Anesthesia Record Part II Anesthesia Record Part II Discharge Time: 13:35 Destination: Second Floor PACU nurse assessment reviewed?: Yes Patient Condition:: Good Anesthesia Complications:: None Swallowing reflex intact?: Yes Cyanosis?: No Blood Pressure: 169/83 Pulse Rate: 65 Temperature: 97 F Mental Status: Alert & Oriented Pain level:: 5 Nausea and/or vomitting:: None Intake, IV Amount: 0
--- NOTE | 2023-03-27 10:52 | CARE MANAGER ---
Called and spoke with patient to discuss recent discharge. Patient stated that he is doing well and is aware of f/u appts. No questions or concerns at time of call.
== END 2023-03-23 12:01 | disposition home or self-care (01) | DRG 417 ==
LOC: ER 20:01 → 2ND 23:25
PROVIDERS: Internal Medicine Adolescent Medicine; Nurse Practitioner Critical Care Medicine; Surgery; Admitting Provider Family Medicine; Emergency Provider Emergency Medicine; PCP Emergency Medicine; Visit Provider Family Medicine
PROC: 0FT44ZZ Resection of Gallbladder, Percutaneous Endoscopic Approach (ICD-10-PCS; CPT 47562; principal; 2023-03-22 11:45)
DX: K81.0 Acute cholecystitis (principal); K85.90 Acute pancreatitis without necrosis or infection, unspecified; K92.0 Hematemesis; I10 Essential (primary) hypertension; E66.9 Obesity, unspecified; Z68.39 Body mass index [BMI] 39.0-39.9, adult
CPT/HCPCS: 47562; 36415; 71046; 74177; 76705; 80048; 80053; 80076; 81001; 82150; 83605; 83615; 83690; 84145; 85007; 85025; 85651; 86140; 87636; 99285; C9803; J0690; J2405; J2543; Q9967; U0003; U0005

== ENCOUNTER → 2023-05-24 12:56 | Outpatient (CLI) | payer BC, MEDICARE, SELFPAY | PROVIDERS: PCP Emergency Medicine; Visit Provider Emergency Medicine | DX: G47.33 Obstructive sleep apnea (adult) (pediatric) (principal) | CPT/HCPCS: G0399 ==

== ENCOUNTER → 2023-08-06 10:57 | Outpatient (CLI) | payer BC, MEDICARE, SELFPAY ==
[2023-08-06 20:04] LABS: Benzodiazepines Screen,Urine Negative ng/ml (<200)
[2023-08-06 20:06] LABS: Cocaine Screen,Urine Negative ng/ml (<300); Methadone Screen,Urine Negative ng/ml (<300)
[2023-08-06 20:07] LABS: Cannabinoid Screen,Urine Negative ng/ml (<50); Opiate Screen,Urine Positive ng/ml (<300)
[2023-08-06 20:08] LABS: Phencyclidine Screen,Urine Negative ng/ml (<25)
[2023-08-06 20:14] LABS: Amphetamine/Metha Screen,Urine Negative ng/ml (<1000)
[2023-08-06 20:30] LABS: Barbiturates Screen,Urine Negative ng/ml (<200)
== END ==
PROVIDERS: PCP Emergency Medicine; Visit Provider Emergency Medicine
DX: M54.16 Radiculopathy, lumbar region (principal)
CPT/HCPCS: 80305

== ENCOUNTER → 2023-08-20 10:09 | Outpatient (CLI) | payer BC, MEDICARE, SELFPAY ==
[2023-08-20 18:45] LABS: Amphetamine/Metha Screen,Urine Negative ng/ml (<1000); Barbiturates Screen,Urine Negative ng/ml (<200)
[2023-08-20 18:46] LABS: Benzodiazepines Screen,Urine Negative ng/ml (<200)
[2023-08-20 18:47] LABS: Cocaine Screen,Urine Negative ng/ml (<300)
[2023-08-20 18:48] LABS: Methadone Screen,Urine Negative ng/ml (<300)
[2023-08-20 18:49] LABS: Opiate Screen,Urine Positive ng/ml (<300)
[2023-08-20 18:51] LABS: Creatinine,Urine Random 230 mg/dL (Not Estab.)
[2023-08-20 18:52] LABS: Cannabinoid Screen,Urine Negative ng/ml (<50)
[2023-08-20 18:54] LABS: Phencyclidine Screen,Urine Negative ng/ml (<25)
== END ==
PROVIDERS: PCP Internal Medicine; Visit Provider Internal Medicine
DX: E66.9 Obesity, unspecified (principal); Z68.38 Body mass index [BMI] 38.0-38.9, adult; Z79.899 Other long term (current) drug therapy
CPT/HCPCS: 80305; 82043; 82570

== ENCOUNTER → 2023-09-18 23:40 | Outpatient (CLI) | payer BC, MEDICARE, SELFPAY ==
[2023-09-18 18:39] LABS: Basophils % 0.6 % (0.1-2.0); Eosinophils % 0.3 % (0.1-12.0); Lymphocytes # 1.9 K/mm3 (0.7-4.5); Lymphocytes % 28.6 % (10-50); Mean Corpuscular HGB Conc 33.4 g/dL (31.8-35.4); Mean Corpuscular Hemoglobin 31.8 pg (27.0-31.2); Mean Corpuscular Volume 95.5 fl (80-94); Mean Platelet Volume 10.6 fl (7.4-10.4); Monocytes # 0.8 K/mm3 (0.1-1.0); Neutrophils # 3.8 K/mm3 (1.8-7.8); Neutrophils % 58.6 % (37.0-80.0); Platelet Count 210 K/mm3 (142-424); Red Blood Count 5.76 M/mm3 (4.60-6.20); Red Cell Distribution Width 13.6 % (11.5-17.5); White Blood Count 6.5 K/mm3 (4.8-10.8)
[2023-09-18 19:17] LABS: Hemoglobin 18.3 g/dL (14.1-18.0)
[2023-09-18 22:35] LABS: Amphetamine/Metha Screen,Urine Negative ng/ml (<1000); Barbiturates Screen,Urine Negative ng/ml (<200); Benzodiazepines Screen,Urine Negative ng/ml (<200); Cannabinoid Screen,Urine Negative ng/ml (<50); Cocaine Screen,Urine Negative ng/ml (<300); Methadone Screen,Urine Negative ng/ml (<300); Opiate Screen,Urine Positive ng/ml (<300); Phencyclidine Screen,Urine Negative ng/ml (<25)
== END ==
PROVIDERS: PCP Internal Medicine; Visit Provider Internal Medicine
DX: Z79.899 Other long term (current) drug therapy (principal)
CPT/HCPCS: 80305; 85025

== ENCOUNTER 2023-10-15 18:09 | Outpatient (CLI) | payer BC, MEDICARE, SELFPAY ==
[2023-10-15 22:33] LABS: Amphetamine/Metha Screen,Urine Negative ng/ml (<1000)
[2023-10-15 22:34] LABS: Barbiturates Screen,Urine Negative ng/ml (<200); Benzodiazepines Screen,Urine Negative ng/ml (<200)
[2023-10-15 22:35] LABS: Cannabinoid Screen,Urine Negative ng/ml (<50)
[2023-10-15 22:36] LABS: Cocaine Screen,Urine Negative ng/ml (<300); Methadone Screen,Urine Negative ng/ml (<300)
[2023-10-15 22:37] LABS: Opiate Screen,Urine Positive ng/ml (<300)
[2023-10-15 22:38] LABS: Phencyclidine Screen,Urine Negative ng/ml (<25)
== END 2023-10-15 23:59 ==
LOC: LAB.DROPOF 18:09
PROVIDERS: PCP Internal Medicine; Visit Provider Internal Medicine
DX: Z79.899 Other long term (current) drug therapy (principal)
CPT/HCPCS: 80307

== ENCOUNTER 2023-12-04 13:54 | Outpatient (CLI) | payer BC, MEDICARE, SELFPAY ==
[2023-12-04 16:06] VITALS: BMI 41.6
== END 2023-12-04 23:59 ==
LOC: DIETICIAN 13:54
PROVIDERS: PCP Internal Medicine; Visit Provider Internal Medicine
DX: E66.9 Obesity, unspecified (principal); Z68.39 Body mass index [BMI] 39.0-39.9, adult
CPT/HCPCS: 97802

== ENCOUNTER 2024-02-12 10:02 | Outpatient (CLI) | payer BC, MEDICARE, SELFPAY ==
[2024-02-12 19:07] LABS: Basophils # 0.1 K/mm3 (0-0.2); Basophils % 0.6 % (0.1-2.0); Eosinophils % 0.4 % (0.1-12.0); Hematocrit 52.7 % (42.0-52.0); Hemoglobin 17.2 g/dL (14.1-18.0); Lymphocytes # 2.7 K/mm3 (0.7-4.5); Lymphocytes % 27.9 % (10-50); Mean Corpuscular HGB Conc 32.7 g/dL (31.8-35.4); Mean Corpuscular Volume 97.9 fl (80-94); Mean Platelet Volume 10.9 fl (7.4-10.4); Monocytes # 0.8 K/mm3 (0.1-1.0); Monocytes % 7.7 % (1.7-9.3); Neutrophils # 6.2 K/mm3 (1.8-7.8); Neutrophils % 63.4 % (37.0-80.0); Platelet Count 238 K/mm3 (142-424); Red Blood Count 5.39 M/mm3 (4.60-6.20); Red Cell Distribution Width 13.9 % (11.5-17.5); White Blood Count 9.7 K/mm3 (4.8-10.8)
[2024-02-12 19:15] LABS: Chol/HDL Ratio 4.3 (1-3.5); Cholesterol 199 mg/dl (140-200); HDL Cholesterol 46 mg/dl (40-60); Triglycerides 163 mg/dl (30-150); VLDL Cholesterol 33 mg/dL (0-40)
[2024-02-12 20:56] LABS: Hemoglobin A1C 6.4 % (4.0-6.0)
== END 2024-02-12 23:59 | disposition home or self-care (01) ==
LOC: LAB.DROPOF 02-13 12:29
PROVIDERS: PCP Internal Medicine; Visit Provider Internal Medicine
DX: R53.83 Other fatigue (principal); I10 Essential (primary) hypertension; Z79.899 Other long term (current) drug therapy
CPT/HCPCS: 80061; 83036; 85025

== ENCOUNTER 2024-03-18 15:46 | Outpatient (RCR) | payer BC, MEDICARE, SELFPAY ==
--- NOTE | 2024-03-19 09:12 | HMH.PTOPEV ---
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 Patient reports symptom onset approx 10 years ago that has progressivly gotten worse over the past year. No recent imaging on file to report. Comorbidities include HTN. New diagnosis of cancer in past 12 No months? Chief Complaint Pain,Stiff,Paresthesia Symptom Type Throb,Burning Symptoms Relieved By Rest/Positioning Symptoms Aggravated By Sitting,Standing,Bending/ Stooping,Physical Activity, Walking,Lifting Prior Functional Limitations Lifting,Housework,Standing, Walking,Bending/Stooping Current Functional Limitations Lifting,Housework,Standing, Walking,Bending/Stooping Symptom Description Constant but Variable Level of pain today (0-10) 3 Pain scale - at its best (0-10) 1 Pain scale - at its worst (0-10) 6 Lumbopelvic Eval Posture Thoracic Spine Posture Standing Position Increased Kyphosis Lumbar Spine Posture Standing Position Decreased Lordosis Assistive device Assistive Devices None / NA Palapation tenderness bilateral lumbar spinal tenderness Yes: L5/S1 3/4 Accessory Movement L5 bilateral S1 bilateral Range of Motion Lumbar Spine Active Flexion Range of 66 Motion (degrees) Lumbar Spine Active Extension Range of 14 Motion (degrees) Left Lumbar Spine Lateral Flexion Active 16 Range of Motion (degrees) Right Lumbar Spine Lateral Flexion 14 Active Range of Motion (degrees) Lumbar Spine ROM Limitations Soft Tissue Tightness,Bony Restriction Manual Muscle Test Bilateral Knee Extension Strength Grade 5 Normal Knee Flexion Strength Grade 5 Normal Hip Flexion Strength Grade 5 Normal Extensor Hallucis Longus Strength Grade 5 Normal Ankle Dorsiflexion Strength Grade 5 Normal Gastronemius/Soleus Strength Grade 5 Normal Altered Sensation LE Dermatome Level L5,S1 Comment intermittent NT Special Tests Hip Josephine Test Positive Left,Positive Right Hip Piriformis Test Positive Left,Positive Right Hip Bowstring (Cram) Test Positive Left,Positive Right Sciatic Nerve Tension Test Positive Left,Positive Right Mal Test Positive Sacroiliac Joint Compression Test Negative Left,Negative Right Sacroiliac Joint Distraction Test Negative Left,Negative Right Lumbar Long [place] Distraction Test/Manual Positive Traction Oswestry Index Section 1 Pain Intensity The pain is moderate and does not vary much Section 2 Personal Care (Washing,[place]resing) increase the pain, but I manage not to change my way of doing it Section 3 Lifting lifting heavy weights off the floor, but I can manage if they are Section 4 Walking I cannot walk more than 1/4 mile without increasing pain Section 5 Sitting Pain prevents me from sitting for more than 1/2 hour Section 6 Standing I cannot stand more than 10 minutes without increasing pain Section 7 Sleeping Because of pain, my normal nights sleep is less than 2 hours sleep Section 8 Social Life Pain has no significant effect on my social life apart from limiting Section 9 Traveling Pain restricts me to short necessary journeys under 30 minutes Section 10 Changing Degreee of Pain My pain is neither getting better or worse Score and Risk Level Oswestry Sc 32 Oswestry Risk Level Severe Disability Outpatient Therapy Assessment Impairments Problems/Impairmments Palpation Tenderness,Impaired Range of Motion,Impaired Walking,Impaired Standing, Impaired Sitting,Impaired Lifting,Impaired Household Care,Impaired Bending, Subjective C/O Pain Prognosis Rehab Potential Fair Clinical Impression Consistent with Diagnosis Yes Short Term Goals Number of Weeks 2 Decrease Subjective C/O Pain Yes: 4/10 at worst Patient to be Ind w/ HEP Yes Car Examiner Goals Number of Weeks 4-6 Decreased Palpation Tenderness Yes: 1/4 Increase Range of Motion Yes: WNL Increase Ability to Walk Yes: 30 min without difficulty Increase Ability to Stand Yes: Increase Ability to Sit Yes: Restore Ability to Lift Objects to Yes: 20 lbs without difficulty Shoulder Level Restore Ability to Lift Objects Overhead Yes: Improve Oswestry Score Yes: <10 Decrease Subjective C/O Pain Yes: 2/10 at worst Outpatient Therapy Plan of Care Treatment Plan May Include Therapeutic Exercise Including Home Yes Exercise Program Manual Therapy Techniques Yes Neuromuscular Re-education Yes Therapeutic Activities to Return to Yes Previous Functional/Work Level Gait Training Yes ADL/Self Care Education Yes Mechanical Traction Yes Dry Needling Yes Thermal Modalities Yes Electrical Stimulation Yes Ultrasound/Phonophoresis Yes Iontophoresis Yes Orthotics/Bracing/Splinting Yes Massage Yes Eval/Re-Eval Yes Frequency Times per week 2 Duration Number of Weeks 4-6 Addendums This patient is a candidate for social No or vocational rehab? Patient/Guardian verbally acknowledges Yes understanding of treatment program and consents to further treatment? Patient/Guardian verbally acknowledges Yes understanding of diagnosis, prognosis and goals for treatment? Eval Complexity PT Charges 93997 - Moderate Complexity Shoulder/Elbow Eval Shoulder Objective Measurements Elbow Objective Measurements PHYSICIAN CERTIFICATION: I certify the specified therapy services for Yonatan Dyer are required, authorized, and reviewed every 30 days.
== END 2024-03-18 16:30 | disposition home or self-care (01) ==
LOC: PT 15:46
PROVIDERS: Visit Provider Internal Medicine
DX: M54.16 Radiculopathy, lumbar region (principal)
CPT/HCPCS: 97163

== ENCOUNTER 2024-05-08 18:53 | Outpatient (CLI) | payer BC, MEDICARE, SELFPAY ==
[2024-05-08 19:34] LABS: Alanine Aminotransferase 87 U/L (12-78); Albumin/Globulin Ratio 1.2 (1.1-1.8); Alkaline Phosphatase 155 U/L (38-126); Anion Gap 12.3 mEq/L (5-15); Aspartate Amino Transferase 89 U/L (17-59); Bilirubin,Total 0.9 mg/dl (0.2-1.3); Blood Urea Nitrogen 11 mg/dl (9-20); Calcium 9.4 mg/dl (8.4-10.2); Carbon Dioxide 22 mmol/L (22.0-30.0); Chloride 109 mmol/L (98-107); Estimated Glomerular Filt Rate 116 ml/min (>60); GFR (African American) 140 ML/MIN (>60); Globulin 3.4 g/dL (1.3-3.2); Glucose 130 mg/dl (74-100); Potassium 4.3 mmoL/L (3.5-5.1); Sodium 139 mmol/L (136-145); Total Protein,Serum 7.4 g/dl (6.3-8.2)
[2024-05-08 19:53] LABS: 25-OH Vitamin D, Total 17.5 ng/mL (30-100)
[2024-05-08 20:08] LABS: Prostate Specific Ag Screen 1.5 ng/ml (0.0-4.0); Thyroid Stimulating Hormone 1.72 uIU/mL (0.465-4.68)
[2024-05-08 21:37] LABS: Hemoglobin A1C 6.9 % (4.0-6.0)
== END 2024-05-08 23:59 | disposition home or self-care (01) ==
LOC: LAB.DROPOF 18:57
PROVIDERS: PCP Internal Medicine; Visit Provider Internal Medicine
DX: M54.16 Radiculopathy, lumbar region (principal); E66.9 Obesity, unspecified; Z68.38 Body mass index [BMI] 38.0-38.9, adult
CPT/HCPCS: 80053; 82306; 83036; 84443; G0103

== ENCOUNTER 2024-07-03 14:45 | Outpatient (CLI) | payer BC, MEDICARE, SELFPAY ==
[2024-07-03 19:09] LABS: Alanine Aminotransferase 65 U/L (12-78); Albumin Level 4.2 g/dl (3.5-5.0); Albumin/Globulin Ratio 1.3 (1.1-1.8); Alkaline Phosphatase 153 U/L (38-126); Aspartate Amino Transferase 69 U/L (17-59); Bilirubin,Total 0.9 mg/dl (0.2-1.3); Blood Urea Nitrogen 11 mg/dl (9-20); Calcium 9.7 mg/dl (8.4-10.2); Carbon Dioxide 24 mmol/L (22.0-30.0); Chloride 107 mmol/L (98-107); Estimated Glomerular Filt Rate 116 ml/min (>60); GFR (African American) 140 ML/MIN (>60); Globulin 3.2 g/dL (1.3-3.2); Glucose 137 mg/dl (74-100); Sodium 133 mmol/L (136-145); Total Protein,Serum 7.4 g/dl (6.3-8.2)
[2024-07-05 08:51] LABS: HCV Ab Non Reactive (Non Reactive)
== END 2024-07-03 23:59 | disposition home or self-care (01) ==
LOC: LAB.DROPOF 07-04 09:28
PROVIDERS: PCP Internal Medicine; Visit Provider Internal Medicine
DX: Z11.59 Encounter for screening for other viral diseases (principal); R94.5 Abnormal results of liver function studies
CPT/HCPCS: 80053; 86803

== ENCOUNTER 2024-08-07 12:37 | Outpatient (CLI) | payer BC, MEDICARE, SELFPAY ==
[2024-08-07 13:38] VITALS: BMI 39.7
== END 2024-08-07 23:59 | disposition home or self-care (01) ==
LOC: DIETICIAN 12:37
PROVIDERS: PCP Internal Medicine; Visit Provider Internal Medicine
DX: E11.69 Type 2 diabetes mellitus with other specified complication (principal); E66.9 Obesity, unspecified
CPT/HCPCS: 97802

== ENCOUNTER 2024-09-25 10:00 | Outpatient (CLI) | payer BC, MEDICARE, SELFPAY ==
[2024-09-25 19:11] LABS: Creatinine,Urine Random 155 mg/dL (Not Estab.)
== END 2024-09-25 23:59 | disposition home or self-care (01) ==
LOC: LAB.DROPOF 09-27 08:51
PROVIDERS: PCP Internal Medicine; Visit Provider Internal Medicine
DX: E11.69 Type 2 diabetes mellitus with other specified complication (principal); Z79.84 Long term (current) use of oral hypoglycemic drugs; E66.9 Obesity, unspecified; Z68.39 Body mass index [BMI] 39.0-39.9, adult
CPT/HCPCS: 82043; 82570

== ENCOUNTER 2025-01-01 14:16 | Outpatient (CLI) | payer BC, MEDICARE, SELFPAY ==
[2025-01-01 19:28] LABS: Albumin Level 4.1 g/dl (3.5-5.0); Chloride 104 mmol/L (98-107); Sodium 137 mmol/L (136-145)
[2025-01-01 19:31] LABS: Alanine Aminotransferase 41 U/L (12-78); Albumin/Globulin Ratio 1.2 (1.1-1.8); Alkaline Phosphatase 152 U/L (38-126); Aspartate Amino Transferase 44 U/L (17-59); Bilirubin,Total 0.5 mg/dl (0.2-1.3); Blood Urea Nitrogen 12 mg/dl (9-20); Carbon Dioxide 25 mmol/L (22.0-30.0); Cholesterol 181 mg/dl (140-200); Estimated Glomerular Filt Rate 138 ml/min (>60); GFR (African American) 167 ML/MIN (>60); Globulin 3.3 g/dL (1.3-3.2); Total Protein,Serum 7.4 g/dl (6.3-8.2); Triglycerides 264 mg/dl (30-150); VLDL Cholesterol 53 mg/dL (0-40)
[2025-01-01 19:32] LABS: Calcium 9.7 mg/dl (8.4-10.2); Chol/HDL Ratio 4.9 (1-3.5); Glucose 222 mg/dl (74-100); HDL Cholesterol 37 mg/dl (40-60)
[2025-01-01 19:51] LABS: Direct LDL Cholesterol 111.89 mg/dL (100-129)
[2025-01-01 21:44] LABS: Hemoglobin A1C 7.1 % (4.0-6.0)
== END 2025-01-01 23:59 | disposition home or self-care (01) ==
LOC: LAB.DROPOF 01-02 10:33
PROVIDERS: PCP Family Medicine; Visit Provider Family Medicine
DX: I10 Essential (primary) hypertension (principal); E11.69 Type 2 diabetes mellitus with other specified complication; E55.9 Vitamin D deficiency, unspecified; E66.9 Obesity, unspecified; Z68.39 Body mass index [BMI] 39.0-39.9, adult; Z79.84 Long term (current) use of oral hypoglycemic drugs
CPT/HCPCS: 80053; 80061; 83036

== ENCOUNTER 2025-01-07 12:58 | Outpatient (CLI) | payer BC, MEDICARE, SELFPAY ==
--- NOTE | 2025-01-07 13:03 | XR_ITS ---
FINAL REPORT CLINICAL HISTORY: lt knee pain, worsening COMPARISON: 11/07/2018 FINDINGS: LEFT KNEE 3 views of the left knee were obtained. There is no acute fracture or dislocation. 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 A small joint effusion is noted. Visualized joint spaces are normally aligned. Soft tissues are unremarkable. IMPRESSION: No acute bony abnormality. Reviewed, Interpreted and Dictated by Katarina Cotton MD Transcribed by Libertad Hightower Authenticated and [facility]
== END 2025-01-07 23:59 | disposition home or self-care (01) ==
LOC: RAD 13:00
PROVIDERS: PCP Family Medicine; Visit Provider Physician Assistant
DX: M25.562 Pain in left knee (principal); M25.462 Effusion, left knee; M17.12 Unilateral primary osteoarthritis, left knee
CPT/HCPCS: 73562

== ENCOUNTER 2025-04-02 14:55 | Outpatient (CLI) | payer BC, MEDICARE, SELFPAY ==
[2025-04-02 19:24] LABS: Alanine Aminotransferase 74 U/L (12-78); Albumin Level 4.4 g/dl (3.5-5.0); Albumin/Globulin Ratio 1.6 (1.1-1.8); Alkaline Phosphatase 191 U/L (38-126); Anion Gap 17.6 mEq/L (5-15); Aspartate Amino Transferase 48 U/L (17-59); Bilirubin,Total 0.8 mg/dl (0.2-1.3); Blood Urea Nitrogen 9 mg/dl (9-20); Calcium 9.6 mg/dl (8.4-10.2); Carbon Dioxide 27 mmol/L (22.0-30.0); Chloride 92 mmol/L (98-107); Cholesterol 128 mg/dl (140-200); Creatinine,Serum 0.60 mg/dl (0.66-1.25); Estimated Glomerular Filt Rate 138 ml/min (>60); GFR (African American) 167 ML/MIN (>60); Globulin 2.8 g/dL (1.3-3.2); HDL Cholesterol 31 mg/dl (40-60); Potassium 4.6 mmoL/L (3.5-5.1); Sodium 132 mmol/L (136-145); Total Protein,Serum 7.2 g/dl (6.3-8.2); Triglycerides 174 mg/dl (30-150)
[2025-04-02 19:27] LABS: Glucose 486 mg/dl (74-100)
[2025-04-02 21:21] LABS: Hemoglobin A1C 12.1 % (4.0-6.0)
--- OUTSIDE RECORDS SUMMARY | 2025-04-03 13:49 | XMS_ITS | Data Portability ---
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 He's been referred specifically for treatment options related to his neuropathic pain in both feet. He describes this as pins and needles and burning on the plantar aspects of both feet. He was recently picking up a headstone and had sudden onset pain in the low back with referral into both lower extremities. There is no evidence of myelopathy today. He did go to the ER and was placed on prednisone and given a short supply of [place]. CT scan of the lumbar spine performed in the ER demonstrated degeneration at L5-S1 with mild foraminal stenosis. There was no myelography performed. He's previously had a lumbar MRI in 2013. He reports a previous nerve conduction study performed reported as normal. Medication management currently consists of [place], prednisone, and Valium. He previously took gabapentin with significant sedation at 300 mg daily at bedtime. His ORT score is 3 representing low risk for ADD and depression. Urine drug screen today is positive for benzodiazepines which is appropriate based on his prescription from the ER. Presentation is consistent with idiopathic peripheral neuropathy. He's never had blood work to assess for any vitamin deficiencies that may be contributing. We will order this. In addition I'll try Lyrica 25 75 milligrams daily at bedtime. I'll refer him to physical therapy for his low back pain. I'll also consider an MRI pending results from PT. We also discussed DRG spinal cord stimulation as a potential option for management of his neuropathic symptoms should he not tolerate medications. ish Not available 04/02/2019 13:20:51 Plan of Treatment Reminders Order Date Submit Date Provider Last Modified By Organization Details Last Modified Time Details Appointments None recorded. Lab drug confirmatio n, urine 2018 [id number] [email or web address] [facility], [facility], [address] [place] [address], [address], 9 07:25:58 drug screen, urine 2018 019 ish [facility], [facility] [address], [place], [address], 9 13:24:36 hemoglobin A1C, fingerstick 2018 019 [facility], [facility], [address] [place] [address], [address], 9 13:24:17 vitamin B12, quant, blood 2018 019 [email or web address] [facility], [facility], [address] [place] [address], [address], 9 08:27:39 vitamin B6 (pyridoxine ), QL, blood 2018 019 [facility], [facility], [address] [place] [address], [address], 9 08:09:55 vitamin D, 25-hydroxy, total, serum 2018 019 [facility], [facility], [address] [place] [address], [address], 9 08:17:41 TSH + T4, serum 2018 019 [facility], [facility], [address] [place] [address], [address], 9 13:22:07 Referral physical therapist referral 2018 019 [email or web address] Not available 9 09:32:04 Procedures None recorded. Surgeries None recorded. Imaging None recorded. Medication Orders None recorded. Patient TargetsNo targets recorded. Patient Instructions Encounter Date Encounter Id Patient Instructions Last Modified By Organization Details Last Modified Time 04/02/2019 [id number] Opioid Risk Tool (ORT)* DEVON Not available 04/02/2019 13:28:19 medical record request* [email or web address] Not available 05/05/2019 09:36:14 Reason for Referral Physical Therapist Referral for Low back pain Referring Physician: Bhargav Rojas, Pain Management, Encounter Date: 04/02/2019 Results Created Date Observation Date Name Description Value Unit Range Abnormal Flag Note LastModifiedBy Organization Detail LastModifiedTime 04/02/2004/02/2019 drug scree n, urine THC: negati ve Not Available [place] [id number], [place], [address], 04/02/2019 13:03:24 04/02/20 19 04/02/2019 drug scree n, urine Buprenorphin e: negati ve Not Available [place] [id number], [place], [address], 04/02/2019 13:03:24 04/02/20 19 04/02/2019 drug scree n, urine TCA: negati ve Not Available [address], [place], [address], 04/02/2019 13:03:24 04/02/20 19 04/02/2019 drug scree n, urine Barbiturates : negati ve Not Available [facility] [address], [place], [address], 04/02/2019 13:03:24 04/02/20 19 04/02/2019 drug scree n, urine Benzodiazepi jimena: positi ve Not Available [place] [id number], [place], [address], 04/02/2019 13:03:24 04/02/20 19 04/02/2019 drug scree n, urine Methadone: negati ve Not Available [facility] [address], [place], [address], 04/02/2019 13:03:24 04/02/20 19 04/02/2019 drug scree n, urine Amphetamines : negati ve Not Available [facility] [address], [place], [address], 04/02/2019 13:03:24 04/02/2004/02/2019 drug scree n, urine Morphine/Opi ates: negati ve Not Available [facility] [address], [place], [address], 04/02/2019 13:03:24 04/02/2004/02/2019 drug scree n, urine Oxycodone: negati ve Not Available [address], [place], [address], 04/02/2019 13:03:24 04/02/2004/02/2019 drug scree n, urine MDMA: negati ve Not Available [facility] [address], [place], [address], 04/02/2019 13:03:24 04/02/2004/02/2019 drug scree n, urine Cocaine: negati ve Not Available [facility] [address], [place], [address], 04/02/2019 13:03:24 04/02/2004/02/2019 drug scree n, urine Methamphetam ine: negati ve Not Available [facility] [address], [place], [address], 04/02/2019 13:03:24 04/03/2004/03/2019 drug confi rmati on, urine abnormal status abnormal Not Available [facility], [address], [address], 04/09/2019 11:00:21 04/03/2004/03/2019 speci men valid ity testi ng urine creatinine 78 mg/dL 44-355 normal Pres ribed Medic ation s: Diaze rory (Finn epam) , [place] codon e (Hydr ocodo ne), Nasrin a (Preg abali n) Not Available [facility], [address], [address], 04/09/2019 11:00:21 04/03/2004/03/2019 ssri citalopram Not Detect ed NG/mL 75 normal Not Available [facility], [address], [address], 04/09/2019 11:00:20 04/03/2004/03/2019 ssri N-desmethylc italopram Not Detect ed NG/mL 75 normal Not Available [facility], [address], [address], 04/09/2019 11:00:20 04/03/2004/03/2019 ssri fluoxetine Not Detect ed NG/mL 75 normal Not Available [facility], [address], [address], 04/09/2019 11:00:20 04/03/2004/03/2019 ssri norfluoxetin e Not Detect ed NG/mL 75 normal Not Available [facility], [address], [address], 04/09/2019 11:00:20 04/03/2004/03/2019 ssri paroxetine Not Detect ed NG/mL 75 normal Not Available [facility], [address], [address], 04/09/2019 11:00:20 04/03/2004/03/2019 ssri sertraline Not Detect ed NG/mL 75 normal Presc ribed Medic ation s: Diaze rory (Finn epam) , [place] codon e (Hydr ocodo ne), Nasrin a (Preg abali n) Not Available [facility], [address], [address], 04/09/2019 11:00:20 04/03/20 19 04/03/2019 amphe tamin es D/L - amphetamine Not Detect ed NG/mL 75 normal Not Available [facility], [address], [address], 04/09/2019 11:00:20 04/03/20 19 04/03/2019 amphe tamin es D/L - methamphetam ine Not Detect ed NG/mL 75 normal Not Available [facility], [address], [address], 04/09/2019 11:00:20 04/03/2004/03/2019 amphe tamin es ritalinic acid Not Detect ed NG/mL 75 normal Presc ribed Medic ation s: Diaze rory (Finn epam) , [place] codon e (Hydr ocodo ne), Nasrin a (Preg abali n) Not Available [facility], [address], [address], 04/09/2019 11:00:20 04/03/2004/03/2019 maria guadalupe turat es butalbital Not Detect ed NG/mL 150 normal Not Available [facility], [address], [address], 04/09/2019 11:00:19 04/03/20 19 04/03/2019 maria guadalupe turat es phenobarbita l Not Detect ed NG/mL 150 normal Presc ribed Medic ation s: Diaze rory (Finn epam) , [place] codon e (Hydr ocodo ne), Nasrin a (Preg abali n) Not Available [facility], [address], [address], 04/09/2019 11:00:19 04/03/2004/03/2019 thera peuti c drugs carisoprodol -soma Not Detect ed NG/mL 75 normal Not Available [facility], [address], [address], 04/09/2019 11:00:19 04/03/2004/03/2019 thera peuti c drugs meprobamate Not Detect ed NG/mL 75 normal Pres ribed Medic ation s: Diaze rory (Finn epam) , [place] codon e (Hydr ocodo ne), Nasrin a (Preg abali n) Not Available [facility], [address], [address], 04/09/2019 11:00:19 04/03/2004/03/2019 benzo diaze pines 7-aminoclona zepam Not Detect ed NG/mL 60 normal Not Available [facility], [address], [address], 04/09/2019 11:00:18 04/03/2004/03/2019 benzo diaze pines alprazolam Not Detect ed NG/mL 60 normal Not Available [facility], [address], [address], 04/09/2019 11:00:18 04/03/2004/03/2019 benzo diaze pines alpha-hydrox yalprazolam Not Detect ed NG/mL 60 normal Not Available [facility], [address], [address], 04/09/2019 11:00:18 04/03/2004/03/2019 benzo diaze pines lorazepam Not Detect ed NG/mL 60 normal Not Available [facility], [address], [address], 04/09/2019 11:00:18 04/03/20 19 04/03/2019 benzo diaze pines nordiazepam Not Detect ed NG/mL 60 normal Not Available [facility], [address], [address], 04/09/2019 11:00:18 04/03/20 19 04/03/2019 benzo diaze pines oxazepam Not Detect ed NG/mL 60 normal Not Available [facility], [address], [address], 04/09/2019 11:00:18 04/03/20 19 04/03/2019 benzo diaze pines temazepam 86 POSITI VE NG/mL 60 normal Pres ribed Medic ation s: Diaze rory (Finn epam) , [place] codon e (Hydr ocodo ne), Nasrin a (Preg abali n) Not Available [facility], [address], [address], 04/09/2019 11:00:18 04/03/20 19 04/03/2019 gigi analo gs gabapentin Not Detect ed NG/mL 225 normal Not Available [facility], [address], [address], 04/09/2019 11:00:18 04/03/20 19 04/03/2019 gigi analo gs pregabalin Not Detect ed NG/mL 225 abnormal Not Available [facility], [address], [address], 04/09/2019 11:00:18 04/03/20 19 04/03/2019 gigi analo gs zaleplon Not Detect ed NG/mL 7.5 normal Not Available [facility], [address], [address], 04/09/2019 11:00:18 04/03/2004/03/2019 gigi analo gs zolpidem Not Detect ed NG/mL 75 normal Pres ribed Medic ation s: Diaze rory (Finn epam) , [place] codon e (Hydr ocodo ne), Nasrin a (Preg abali n) Not Available [facility], [address], [address], 04/09/2019 11:00:18 04/03/20 19 04/03/[address] antag buprenorphin e Not Detect ed NG/mL 7.5 normal Not Available [facility], [address], [address], 04/09/2019 11:00:04/03/2004/03/[address] antag norbuprenorp josh Not Detect ed NG/mL 37.5 normal Not Available [facility], [address], [address], 04/09/2019 11:00:17 04/03/2004/03/[address] antag naloxone Not Detect ed NG/mL 75 normal Not Available [facility], [address], [address], 04/09/2019 11:00:17 04/03/2004/03/[address] antag pentazocine Not Detect ed NG/mL 22.5 normal Pres ribed Medic ation s: Diaze rory (Finn epam) , [place] codon e (Hydr ocodo ne), Nasrin a (Preg abali n) Not Available [facility], [address], [address], 04/09/2019 11:00:17 04/03/2004/03/2019 opiat es/op ioids codeine Not Detect ed NG/mL 75 normal Not Available [facility], [address], [address], 04/09/2019 11:00:17 04/03/2004/03/2019 opiat es/op ioids fentanyl Not Detect ed NG/mL 6 normal Not Available [facility], [address], [address], 04/09/2019 11:00:17 04/03/20 19 04/03/2019 opiat es/op ioids norfentanyl Not Detect ed NG/mL 6 normal Not Available [facility], [address], [address], 04/09/2019 11:00:04/03/20 19 04/03/2019 opiat es/op ioids morphine Not Detect ed NG/mL 75 normal Not Available [facility], [address], [address], 04/09/2019 11:00:04/03/20 19 04/03/2019 opiat es/op ioids hydrocodone 111 POSITI VE NG/mL 75 normal Not Available [facility], [address], [address], 04/09/2019 11:00:04/03/20 19 04/03/2019 opiat es/op ioids norhydrocodo ne 199 POSITI VE NG/mL 75 normal Not Available [facility], [address], [address], 04/09/2019 11:00:04/03/20 19 04/03/2019 opiat es/op ioids hydromorphon e 119 POSITI VE NG/mL 75 normal Not Available [facility], [address], [address], 04/09/2019 11:00:17 04/03/20 19 04/03/2019 opiat es/op ioids oxycodone Not Detect ed NG/mL 37.5 normal Not Available [facility], [address], [address], 04/09/2019 11:00:17 04/03/20 19 04/03/2019 opiat es/op ioids noroxycodone Not Detect ed NG/mL 37.5 normal Not Available [facility], [address], [address], 04/09/2019 11:00:17 04/03/20 19 04/03/2019 opiat es/op ioids oxymorphone Not Detect ed NG/mL 75 normal Not Available [facility], [address], [address], 04/09/2019 11:00:04/03/20 19 04/03/2019 opiat es/op ioids meperidine Not Detect ed NG/mL 37.5 normal Not Available [facility], [address], [address], 04/09/2019 11:00:17 04/03/20 19 04/03/2019 opiat es/op ioids normeperidin e Not Detect ed NG/mL 37.5 normal Not Available [facility], [address], [address], 04/09/2019 11:00:17 04/03/20 19 04/03/2019 opiat es/op ioids methadone Not Detect ed NG/mL 75 normal Not Available [facility], [address], [address], 04/09/2019 11:00:17 04/03/20 19 04/03/2019 opiat es/op ioids methadone (EDDP) Not Detect ed NG/mL 75 normal Not Available [facility], [address], [address], 04/09/2019 11:00:17 04/03/20 19 04/03/2019 opiat es/op ioids propoxyphene Not Detect ed NG/mL 75 normal Not Available [facility], [address], [address], 04/09/2019 11:00:17 04/03/2004/03/2019 opiat es/op ioids norpropoxyph prince Not Detect ed NG/mL 75 normal Not Available [facility], [address], [address], 04/09/2019 11:00:04/03/20 19 04/03/2019 opiat es/op ioids tapentadol Not Detect ed NG/mL 37.5 normal Not Available [facility], [address], [address], 04/09/2019 11:00:17 04/03/20 19 04/03/2019 opiat es/op ioids tramadol Not Detect ed NG/mL 75 normal Not Available [facility], [address], [address], 04/09/2019 11:00:17 04/03/2004/03/2019 opiat es/op ioids I-vys-mvnmin -cis-tramado l Not Detect ed NG/mL 75 normal Presc ribed Medic ation s: Diaze rory (Finn epam) , [place] codon e (Hydr ocodo ne), Nasrin a (Preg abali n) Not Available [facility], [address], [address], 04/09/2019 11:00:17 04/03/2004/03/2019 drug confi rmati on, urine comment: See Compon ents normal Presc ribed Medic ation s: Diaze rory (Finn epam) , [place] codon e (Hydr ocodo ne), Nasrin a (Preg abali n) Not Available [facility], [address], [address], 04/09/2019 11:00:16 04/23/20 19 MRI, lumba r spine , w/o contr ast No observ ation record ed. [email or web address] [facility] [address], [place], [address], 05/02/2019 09:24:10 Result Notes None recorded. Problems Name Problem SNOMED Code Status Onset Date Resolution Date Notes Provider Name and Address Organization Details Recorded Time Low back pain 560324342 [facility] 9 12:58:26 Idiopathic peripheral neuropathy 41655055 Active 2018 Bhargav Rojas MD [address] [place] [address], [address] , [facility] 9 13:21:59 Problem Notes None recorded. Procedures Surgical History Date Name Laterality Status Provider Name and Address Organization Details Recorded Time Knee Surgery completed Genevieve Sherman [facility] 04/02/2019 12:56:13 Imaging Results None recorded. Procedure Notes None recorded. Medical Equipment None Reported. Allergies Allergen ID Allergen Name Allergen Category Reaction Reaction Severity Criticality Documentation Date Start Date Code Code System Note Provider Name and Address Organization Details Recorded Time 478128 Pepcid medicatio n Not available Not available Not available 04/02/2019 17935 8 RxNorm Genevieve guido [facility] 9 12:56:22 573048 Reglan medicatio n Not available Not available Not available 04/02/2019 9230 RxNorm Genevieve guido [facility] 9 12:56:26 Medications Name Sig Start Date Stop Date Status Note LastModified by Organization Details LastModified Time azithromyci n 250 mg tablet 04/02 completed Not Available Not Available Not Available hydrocodone 5 mg-acetamin ophen 325 mg tablet active Not Available Not Available No t Available prednisone 20 mg tablet active Not Available Not Available Not Available amlodipine 5 mg tablet 04/02 completed Not Available Not Available Not Available oxycodone-a cetaminophe n 5 mg-325 mg tablet 04/02 completed Not Available Not Available Not Available hydrocodone 7.5 mg-acetamin ophen 325 mg tablet Take 1 tablet 4 times a day by oral route. active Not Available Not Available No t Available lisinopril 10 mg tablet active Not Available Not Available Not Available lisinopril 5 mg tablet 04/02 completed Not Available Not Available Not Available methylpredn isolone 4 mg tablets in a dose pack 04/02 completed Not Available Not Available Not Available diazepam 5 mg tablet Take 1 tablet every day by oral route. active Not Available Not Available No t Available bupropion HCl XL 300 mg 24 hr tablet, extended release 04/02 completed Not Available Not Available Not Available bupropion HCl XL 150 mg 24 hr tablet, extended release 04/02 completed Not Available Not Available Not Available Lyrica 25 mg capsule TAKE 3 CAPSULES BY MOUTH EVERY DAY AT BEDTIME MAY CAUSE DROWSINES S active Not Available Not Available No t Available sildenafil active Not Available Not Av ailable Not Available Havrix (PF) 1,440 WILLARD unit/mL intramuscul ar syringe 04/02 completed Not Available Not Available Not Available Vaqta (PF) 50 unit/mL intramuscul ar suspension 04/02 completed Not Available Not Available Not Available Shingrix (PF) 50 mcg/0.5 mL intramuscul ar suspension, kit 04/02 completed Not Available Not Available Not Available Vitals Date Recorded Body height Body mass index (BMI) Body weight Oxygen saturation Oxygen saturation in Arterial blood by Pulse oximetry Heart rate Systolic And Diastolic Provider Name and Address Organization Details Last Updated DateTime 9 185.42 cm 36.3 kg/m2 900602. 9 g 96 % 96 % 90 /min 167/115 mm[Hg] Genevieve Sherman [facility] 9 12:57:26 Social History Question Answer Notes LastModified by Organizat ion Details LastModified Time Tobacco Smoking Status Never Smoker Not Available [facility] 07/09/2020 03:18:54 What Is Your Level Of Caffeine Consumption? Occasional [id number] Information not available 07/09/2020 How Much Tobacco Do You Chew? 2-4/day [id number] Information not available 07/09/2020 Are You Deaf Or Do You Have Serious Difficulty Hearing? No [id number] Information not available 07/09/2020 Which Illicit Or Recreational Drugs Have You Used? NONE [id number] Information not available 07/09/2020 Hard Of Hearing Or Deaf In One Or Both Ears? No Information not available 04/02/2019 Disability No [email or web address] Information no t available 04/02/2019 Marital Status [email or web address] Informatio n not available 04/02/2019 What Was The Date Of Your Most Recent Tobacco Screening? 04/02/2019 [id number] Information not available 07/09/2020 How Much Tobacco Do You Smoke? No [id number] Information not available 07/09/2020 General Stress Level Low [email or web address] Information not available 04/02/2019 Do You Have Difficulty Walking Or Climbing Stairs? Yes [id number] Information not available 07/09/2020 Sex: Unknown Functional Status Question Answer Note LastModified by Organizat ion Details LastModified Time What is your level of alcohol consumption? None [id number] Information not available 07/09/2020 Are you able to walk? YESWOREST [id number] Information not available 07/09/2020 Do you have difficulty doing errands alone? No [id number] Information not available 07/09/2020 What is your occupation? Unemployed [id number] Information not available 07/09/2020 Do you have difficulty dressing or bathing? Yes [id number] Information not available 07/09/2020 What is your exercise level? Occasional [id number] Information not available 07/09/2020 Mental Status Question Answer Note LastModified by Organization D etails LastModified Time Do you have difficulty concentrating, remembering or making decisions? Yes [id number] Information no t available 07/09/2020 Family History Relationship Description Onset Age of this Age Resolved Age Notes LastModified by Organization Details LastModified Time Father Hypertensive disorder [email or web address] Not available 2018 12:55:59 Medical History Condition Response Bipolar Disease N Coronary Artery Disease N Gout N Seizure Disorder N Thyroid Disease N Osteoarthritis N Atrial Fibrillation N Head Trauma/Injury N Hernia N Neurosurgery N Depression N COPD N DVT N Anemia N Heart Attack ([place]) N Anxiety Disorder N Diabetes N Cardiomyopathy N Bleeding Disorder N CHF N AIDS/HIV N Inflammatory Bowel Disease N Cancer N Stroke N Skin Disorder N Dementia N Asthma N Substance Abuse N Sleep Apnea N High Cholesterol N Hepatitis N Liver Disease N Heart Disease N Rheumatoid Arthritis N Pulmonary Embolism N Chronic Low Back Pain N Fibromyalgia N Headaches N Hypertension Y Osteoporosis N Kidney Disease N Autoimmune Disease N Past Encounters Encounter ID Performer Location Encounter Start Date Encounter Closed Date Diagnosis/Indication Diagnosis SNOMED-CT Code Diagnosis ICD10 Code Diagnosis Note [id number] Bhargav Rojas MD [facility] [address] [facility] [place] [address] 04/02/2019 12:28:00 04/02/2019 13:24:33 Low back pain 839825059 M54.5 Interverte bral disc disorder 20370284 M51.27 Long-term drug therapy 315553395 Z79.899 The urine sample is being sent for LCMS, quantitati ve analysis as this is a patient that being prescribed controlled medication s for the first time at this practice. The purpose of this analysis is to confirm the patients stated medication usage and to establish baseline medication and metabolite quantities . Chronic pain syndrome [id number] G89.4 ORT and PHQ-9 testing was completed electronic ally by the patient to evaluate the patient's [facility] to better determine baseline risk as we consider initiating opioid medication s. The patient's ORT score of 3 indicates low risk potential for medication misuse. The patients PSEQ score being 8 represents the patient has functional gains if opioid medication is considered . Baseline results. Will be taken into considerat ion if treatment with opioid medication is initiated in the future. Neuropathy [id number] G62 .9 Idiopathic peripheral neuropathy [id number] G60.9 Medication monitoring 39 [id number] Z51.81 Health Concerns Section Related Observation LastModified by Organization Detai ls LastModified Time None Recorded Concern Status LastModified by Organization Details LastModified Time None Recorded Advance Directives Directive None Recorded Payers Insurance Date Sequence Insurance Name Policy Number Policy [place] Covered Member ID [place] Member ID Guarantor Name 04/29/2019 1 [place] [id number] Mikayla Dyer [id number] Yonatan Dyer 04/29/2019 2 [place] Yonatan Dyer [id number] Yonatan Dyer Notes Date Note Type Note Provider Name and Address Organization Details Recorded Time 04/02/2019 text/html Low back painReported bypatient.Onset:1. 5 weeks; continuous since onset Location:bilateral paraspinal; midline spine; radiating down the bilateral lower extremities to the feet Context:started without cause Quality:aching; burning; throbbing; constant Severity:current pain level: 4/10; worst pain level: 10/10 Alleviating Factors:exercise (walking); NSAIDs Aggravating Factors:sitting (prolonged); walking (prolonged); lifting Timing:constant Associated Symptoms:weakness; numbness(Bilateral feet);tingling(Theron ateral feet) Prior Imaging:MRI (2013 [facility]); CT scan (03/30/2019 [facility]) Previous Lumbar Surgery:none Previous Injections:none Previous PT:completed PT; weeks of PT completed: more than 6 weeks; response to therapy: made pain worse Medications History:NSAIDs: (Ibuprofen- min effective); muscle relaxants: (Denies); neuropathics: (Gabapentin- not effective); opioid pain medications: ([place]- effective Percocet- effective) Work Related:no Working:no [facility] Bhargav Rojas MD [address] [place] [address], [id number], [facility] 04/02/2019 13:25:16
== END 2025-04-02 23:59 | disposition home or self-care (01) ==
LOC: LAB.DROPOF 04-03 13:46
PROVIDERS: PCP Family Medicine; Visit Provider Family Medicine
DX: E11.69 Type 2 diabetes mellitus with other specified complication (principal); E66.9 Obesity, unspecified
CPT/HCPCS: 80053; 80061; 83036